=== PATIENT | female | born 1995 | race Caucasian/White ===

== ENCOUNTER 2017-05-20 22:22 | Outpatient (CLI) | payer MEDICAID, OTHER ==
[~2017-05-20] VITALS: Ht 152.4 cm; Wt 83.7 kg
[2017-05-20 22:39] VITALS: Ht 152.4 cm; Wt 83.7 kg
[2017-05-20] MEDS ORDERED: PRENAT PO (22:40)
[2017-05-20 22:50] VITALS: BP 120/59; PULSE 98; RESP 18
[2017-05-20 23:37] LABS: BASOPHIL # 0.1 10^3/ul (0.0-0.1); BASOPHILS % 0.4 % (0.0-2.0); EOSINOPHILS # 0.4 10^3/ul (0.0-0.5); EOSINOPHILS % 2.6 % (0.0-7.0); HEMATOCRIT 31.4 % (37.0-47.0); HEMOGLOBIN 10.7 g/dl (12.0-16.0); LYMPHOCYTES # 2.5 10^3/ul (0.8-2.9); LYMPHOCYTES % 17.9 % (18.0-55.0); MEAN CORPUSCULAR HEMOGLOBIN 30.7 pg (29.0-33.0); MEAN CORPUSCULAR HGB CONC 34.1 g/dl (32.0-37.0); MEAN PLATELET VOLUME 9.8 fl (7.4-10.4); MONOCYTE # 1.3 10^3/ul (0.3-0.9); MONOCYTES % 9.2 % (0.0-13.0); NEUTROPHILS % 67.4 % (30.0-74.0); PLATELET COUNT 242 10^3/UL (140-415); RED BLOOD COUNT 3.49 10^6/ul (4.20-5.40); RED CELL DISTRIBUTION WIDTH 12.5 % (11.5-14.5); WHITE BLOOD COUNT 13.9 10^3/ul (4.8-10.8)
[2017-05-20 23:49] LABS: ADD UMIC NO; UR ASCORBIC ACID NEGATIVE (NEGATIVE); UR BILIRUBIN (Dip) NEGATIVE (NEGATIVE); UR BLOOD (Dip) NEGATIVE (NEGATIVE); UR CLARITY CLEAR (CLEAR); UR COLOR YELLOW (YELLOW); UR GLUCOSE (Dip) NEGATIVE (NEGATIVE); UR KETONES (Dip) NEGATIVE (NEGATIVE); UR LEUKOCYTE ESTERASE (Dip) NEGATIVE Leu/ul (NEGATIVE); UR NITRITE (Dip) NEGATIVE (NEGATIVE); UR SPECIFIC GRAVITY (Dip) 1.015 (1.003-1.030); UR TOTAL PROTEIN (Dip) NEGATIVE (NEGATIVE); UR UROBILINOGEN (Dip) NEGATIVE (NEGATIVE)
--- NOTE | 2017-05-20 23:56 | RADRPT ---
PROCEDURE: OB ultrasound for biophysical profile CLINICAL INDICATION: well-being. TECHNIQUE: Multiple sonographic images of the gravid uterus performed. The images were reviewed on a PACS workstation. COMPARISON: None FINDINGS: A single live intrauterine is identified with heart rate of 139 bpm. Fet us is in a cephalic presentation. Placenta is located posteriorly. Biophysical profile: breathing movement = 2/2 tone = 2/2 motion = 2/2 MALLIKA = 2/2 Amniotic fluid MVP = 5.8 cm. IMPRESSION: 1. Single live intrauterine gestation. 2. Biophysical profile = 8/8. 3. Amniotic fluid MVP = 5.8 cm. RPTAT: HMVK .Anam Kern MD, Date Time Electronically viewed and signed by .Anam Kern MD, MD on 05/20/2017 23:55 .K/
--- NOTE | 2017-05-20 23:58 | RADRPT ---
PROCEDURE: US OB. CLINICAL INDICATION: well-being. TECHNIQUE: Multiple sonographic images of the pelvis were obtained. Transabdominal imaging only w as performed. The images were reviewed on a PACS workstation. COMPARISON: None. FINDINGS: Single live intrauterine is identified. Cardiac activity is present with 148 beats per mi nute. There is a vertex presentation. Measurements: BPD = 23 weeks 0 days. HC = 22 weeks 0 days. AC = 23 weeks 5 days. FL = 23 weeks 0 days. Estimated gestational age of approximately 23 weeks 0 days. The estimated date of delivery is 09/16/2017. The EFW = 575 g which is at the greater than 97th percentile.. The placenta is posterior. IMPRESSION: Single live intrauterine gestation of approximately 23 weeks 0 days. RPTAT: HMVK .Anam Kern MD, MD Date Time Electronically viewed and signed by .Anam Kern MD, MD on 05/20/2017 23:57 .K/
[2017-05-21] MEDS ORDERED: ACETAMINOPHEN 325 MG TAB PO ONE
--- NOTE | 2017-05-21 00:49 | RADRPT ---
PROCEDURE: Limited OB ultrasound CLINICAL INDICATION: Pain TECHNIQUE: Limited sonographic evaluation of the gravid uterus was performed to assess the cervica l length COMPARISON: 05/20/2017. FINDINGS: Single intrauterine demonstrates the cervix with a length of 4.51 cm. IMPRESSION: Single intrauterine with a cervical length of 4.51 cm. RPTAT: HMVK .Anam Kern MD, Date Time Electronically viewed and signed by .Anam Kern MD, on 05/21/2017 00:49 .K/
[2017-05-21 02:58] LABS: BARBITURATES Negative (NEGATIVE); BENZODIAZEPINES Negative (NEGATIVE); CANNABINOIDS Negative (NEGATIVE); COCAINE Negative (NEGATIVE); OPIATES Negative (NEGATIVE)
--- NOTE | 2017-05-21 03:23 | TRIAGE ---
OB Triage Datetime Report Generated by CPN: 05/21/2017 03:23 Datetime: 05/21/2017 01:10 Stage of : OB Triage Labor Evaluation Frequency: OCCASS Monitor Mode: External Duration (sec)2399: 50 Quality: Mild Pattern: Normal: <= 5 Contractions in 10 Minutes Resting Tone [place]: Relaxed Pain Assessment Pain Scale: 3 Pain Presence: Constant Pain Type: Ache Pain Location: Back Pain Goal: 3 Pain Relief Measures: Pain Medication Given (Annotations: TYLENOL WAS GIVEN EARLIER) Datetime: 05/21/2017 00:15 Stage of : OB Triage Labor Evaluation Frequency: OCCASS Monitor Mode: External Duration (sec)2399: 50 Quality: Mild Pattern: Normal: <= 5 Contractions in 10 Minutes Resting Tone [place]: Relaxed Pain Assessment Pain Scale: 5 Pain Presence: Constant Pain Type: Ache Pain Location: Back Pain Goal: 3 Pain Relief Measures: Comfort Measures Datetime: 05/20/2017 23:15 Stage of : OB Triage Temperature Route: Oral Labor Evaluation Frequency: OCCASS Monitor Mode: External Duration (sec)2399: 50 Quality: Mild Pattern: Normal: <= 5 Contractions in 10 Minutes Resting Tone [place]: Relaxed Heart Rate FHR Baseline Rate: 140 (Annotations: CANNOT MONITOR CONTINOUSLY DUE TO GA) Monitor Mode: External US Variability: Minimal - Undetectable to <=5 bpm Accelerations: 10X10 Decelerations: None Category: Category I Pain Assessment Pain Scale: 5 Pain Presence: Constant Pain Type: Ache Pain Location: Back Pain Goal: 3 Pain Relief Measures: Comfort Measures Datetime: 05/20/2017 22:49 Assessment Type: Triage Maternal Assessment Level of Consciousness: Fully Conscious DTR's/Clonus: DTRs 2+; No Clonus Headache: Denies Blurred Vision: No Respiratory Effort: Unlabored; Regular Rhythm; Equal Expansion Breath Sounds, Left: Clear and Equal Breath Sounds, Right: Clear and Equal Nausea/Vomiting: Denies RUQ Epigastric Pain: Denies Lower Extremities Edema: Bilateral Lower Extremities Degree: 2+ Upper Extremities Edema: None Facial Edema: None Fall Risk Assessment History of Falling: (0) No Secondary Diagnosis: (0) No Ambulatory Aid: (0) Bedrest/Nurse Assist IV Therapy: (0) No Gait: (0) Normal/Bedrest/Immobile Mental Status: (0) Oriented to Own Ability Fall Score: 0 Fall Risk Score Definition: No Risk: No action required Datetime: 05/20/2017 22:48 Time of Arrival: 05/20/2017 22:25 EGA: 21.4 Arrived By: Stretcher; Ambulance Arrived From: Home Chief Complaint: FLANK PAIN RADIATES TO ABD Movement: Present Contractions: Denies/Absent Rupture of Membranes: Denies Vaginal Bleeding: None Vaginal Discharge: Denies Abdominal Trauma: Not Applicable Patient Complaints: Back Pain Time Provider Notified: 05/20/2017 22:35 Provider Notified: BULMARO Initial Plan: UA, CBC, U/S FOR EFW AND BPP
--- NOTE | 2017-05-21 04:06 | PN ---
Triage Information Date/Time 05/21/17 Reason for visit: Abd/pelvic pain Weeks of Gestation 21W4D /Para PRIMIGRAVIDA Diabetes: none Hypertention: none Additional information FLANK PAIN Objective Vital Signs Date Time Temp Pulse Resp B/P Pulse Ox O2 Delivery O2 Flow Rate FiO2 05/20/17 22:50 98.9 98 18 120/59 Room Air Heart Rate: 150's Contractions: None Exam CVA neg for tenderness Results/Medications Result Diagram: 05/20/17 2316 Results 24 hrs Laboratory Tests Test 05/20/17 22:35 05/20/17 23:16 Urine Color YELLOW Urine Clarity CLEAR Urine pH 6.0 Urine Specific [place] 1.015 Urine Ketones NEGATIVE Urine Nitrite NEGATIVE Urine Bilirubin NEGATIVE Urine Urobilinogen NEGATIVE Urine Leukocyte Esterase NEGATIVE Urine Hemoglobin NEGATIVE Urine Glucose NEGATIVE Urine Total Protein NEGATIVE Urine Opiates Screen Negative Urine Barbiturates Negative Urine Amphetamines Screen Negative Urine Benzodiazepines Screen Negative Urine Cocaine Screen Negative Urine Cannabinoids Negative White Blood Count 13.9 H Red Blood Count 3.49 L Hemoglobin 10.7 L Hematocrit 31.4 L Mean Corpuscular Volume 90.0 Mean Corpuscular Hemoglobin 30.7 Mean Corpuscular Hemoglobin Concent 34.1 Red Cell Distribution Width 12.5 Platelet Count 242 Mean Platelet Volume 9.8 Neutrophils % 67.4 Lymphocytes % 17.9 L Monocytes % 9.2 Eosinophils % 2.6 Basophils % 0.4 Nucleated Red Blood Cells % 0.0 Neutrophils # (Manual) 9 H Lymphocytes # 2.5 Monocytes # 1.3 H Eosinophils # 0.4 Basophils # 0.1 Nucleated Red Blood Cells # 0.0 Medications tylenol 650mg Imaging Results BPP 05/06 MALLIKA 5.8 MVP 5.8 EFW 575 gms CVL 4.51 Disposition: Discharge Assessment/Plan IUP 21w4d pelvic pain and flank pain not in labor CHRISTINE CHAMBERLAIN MD May 21, 2017 04:05
== END 2017-05-21 02:17 | disposition home or self-care (01) ==
LOC: OBT 22:22 → L-D 22:23 → OBT 05-21 02:17
PROVIDERS: ATTEND Obstetrics & Gynecology
DX: O26.892 Other specified pregnancy related conditions, second trimester (principal); Z3A.21 21 weeks gestation of pregnancy; R10.2 Pelvic and perineal pain
CPT/HCPCS: 76815; 76817; 76818; 80307; 81003; 85025; 87086; Z7500; Z7610; G0463

== ENCOUNTER 2017-05-27 18:11 | Outpatient (CLI) | payer OTHER ==
[~2017-05-27] VITALS: Ht 152.4 cm; Wt 84.6 kg
[~2017-05-27 18:11] MED LIST: PRENAT PO
[2017-05-27 18:22] VITALS: Ht 152.4 cm; Wt 84.6 kg
[2017-05-27 18:23] VITALS: BP 122/61; PULSE 101; RESP 18
[2017-05-27 18:45] LABS: BASOPHILS % 0.3 % (0.0-2.0); EOSINOPHILS # 0.2 10^3/ul (0.0-0.5); EOSINOPHILS % 1.6 % (0.0-7.0); HEMATOCRIT 32.1 % (37.0-47.0); HEMOGLOBIN 10.8 g/dl (12.0-16.0); LYMPHOCYTES # 1.9 10^3/ul (0.8-2.9); LYMPHOCYTES % 13.6 % (18.0-55.0); MEAN CORPUSCULAR HEMOGLOBIN 30.3 pg (29.0-33.0); MEAN CORPUSCULAR HGB CONC 33.6 g/dl (32.0-37.0); MEAN CORPUSCULAR VOLUME 89.9 fl (72.0-104.0); MEAN PLATELET VOLUME 9.5 fl (7.4-10.4); MONOCYTES % 7.3 % (0.0-13.0); NEUTROPHILS % 75.4 % (30.0-74.0); PLATELET COUNT 257 10^3/UL (140-415); RED BLOOD COUNT 3.57 10^6/ul (4.20-5.40); RED CELL DISTRIBUTION WIDTH 12.1 % (11.5-14.5); WHITE BLOOD COUNT 14.2 10^3/ul (4.8-10.8)
--- NOTE | 2017-05-27 19:06 | RADRPT ---
PROCEDURE: US OB. CLINICAL INDICATION: Trauma due to a fall. Decreased motion. TECHNIQUE: Multiple sonographic images of the uterus were obtained. The images were revi ewed on a PACS workstation. COMPARISON: No prior studies are available for comparison. FINDINGS: There is a single live intrauterine gestation. heart rate is 141 beats per minute. Measurements were made in order to determine age. The results are as follows: BPD = 6.05 cm. HC = 21.34 cm. AC = 19.81 cm. FL = 4.33 cm. Estimated weight is 679 +/- 102 grams. LMP growth percentile is greater than 97 %. Menstrual age by ultrasound dates is 24 weeks 1 day. The estimated date of delivery is 09/15/2017. Cervical length is 6.7 cm. Position is cephalic and placenta is posterior grade 1. There is no evidence for an abruption or annette centa previa. IMPRESSION: 1. Single live intrauterine gestation of 24 weeks 1 day menstrual age by ultrasound dates. 2. The estimated date of delivery is 09/15/2017. RPTAT: QQ .Gunnar Pond MD, Date Time Electronically viewed and signed by .Gunnar Pond MD, on 05/27/2017 19:06 .R/
--- NOTE | 2017-05-27 22:47 | PN ---
Triage Information Date/Time Reason for visit: s/p fall Weeks of Gestation 22 weeks /Para Diabetes: none Hypertention: none Objective Vital Signs Date Time Temp Pulse Resp B/P Pulse Ox O2 Delivery O2 Flow Rate FiO2 05/27/17 18:23 99.6 101 18 122/61 Room Air Heart Rate: 140's Heart Rate Comments Appropriate for GA Contractions: None Results/Medications Result Diagram: 05/27/17 1830 Results 24 hrs Laboratory Tests Test 05/27/17 18:30 White Blood Count 14.2 H Red Blood Count 3.57 L Hemoglobin 10.8 L Hematocrit 32.1 L Mean Corpuscular Volume 89.9 Mean Corpuscular Hemoglobin 30.3 Mean Corpuscular Hemoglobin Concent 33.6 Red Cell Distribution Width 12.1 Platelet Count 257 Mean Platelet Volume 9.5 Neutrophils % 75.4 H Lymphocytes % 13.6 L Monocytes % 7.3 Eosinophils % 1.6 Basophils % 0.3 Nucleated Red Blood Cells % 0.0 Neutrophils # (Manual) 10.7 H Lymphocytes # 1.9 Monocytes # 1.0 H Eosinophils # 0.2 Basophils # 0.0 Nucleated Red Blood Cells # 0.0 Kleihauer-Betke Stain 0.0000 Imaging Results No sign of abruption Disposition: Discharge Assessment/Plan S/P fall Monitoring is reassuring D/c home. GRIS LICEA MD May 27, 2017 22:47
--- NOTE | 2017-05-27 23:04 | TRIAGE ---
OB Triage Datetime Report Generated by CPN: 05/27/2017 23:04 Datetime: 05/27/2017 23:01 Stage of : OB Triage Datetime: 05/27/2017 22:48 Comments: external monitors removed Datetime: 05/27/2017 22:22 Comments: maternal movement with movement, difficult to monitor Datetime: 05/27/2017 22:00 Labor Evaluation Frequency: 0 Monitor Mode: External Pattern: Normal: <= 5 Contractions in 10 Minutes Heart Rate FHR Baseline Rate: 145 Monitor Mode: External US Datetime: 05/27/2017 21:00 Labor Evaluation Frequency: 0 Monitor Mode: External Pattern: Normal: <= 5 Contractions in 10 Minutes Heart Rate FHR Baseline Rate: 145 Monitor Mode: External US FHR Baseline Changes: No Baseline Change Variability: Moderate 6-25 bpm Datetime: 05/27/2017 20:44 Comments: pt. sitting up to look at calendar Datetime: 05/27/2017 20:15 Comments: DR. DELSHAD CONFIRMED AUDIBLE FHT HEARD Datetime: 05/27/2017 20:00 Labor Evaluation Frequency: none Duration (sec)2399: none Datetime: 05/27/2017 19:18 Stage of : OB Triage Maternal Assessment Level of Consciousness: Fully Conscious Headache: Denies Blurred Vision: No Respiratory Effort: Unlabored; Regular Rhythm; Equal Expansion Nausea/Vomiting: Denies RUQ Epigastric Pain: Denies Lower Extremities Edema: Bilateral Lower Extremities Degree: 2+ Facial Edema: None Temperature Route: Axillary Fall Risk Assessment History of Falling: (0) No Secondary Diagnosis: (0) No Ambulatory Aid: (0) Bedrest/Nurse Assist IV Therapy: (0) No Gait: (0) Normal/Bedrest/Immobile Mental Status: (0) Oriented to Own Ability Fall Score: 0 Fall Risk Score Definition: No Risk: No action required Datetime: 05/27/2017 19:12 Monitor Mode: External US Comments: HEART TONES AUDIBLE WITH EXTERNAL MONITOR. 145 FHR, Datetime: 05/27/2017 19:09 Temperature Route: Oral Datetime: 05/27/2017 19:00 Monitor Mode: External Resting Tone [place]: Relaxed Pain Assessment Pain Scale: 3 Pain Presence: Intermittent Pain Type: Ache Pain Location: Abdomen Pain Goal: 0 Pain Relief Measures: Comfort Measures Datetime: 05/27/2017 18:20 Assessment Type: Triage Maternal Assessment Level of Consciousness: Fully Conscious DTR's/Clonus: DTRs 2+; No Clonus Headache: Denies Blurred Vision: No Respiratory Effort: Unlabored; Regular Rhythm; Equal Expansion Breath Sounds, Left: Clear and Equal Breath Sounds, Right: Clear and Equal Nausea/Vomiting: Denies RUQ Epigastric Pain: Denies Lower Extremities Edema: Bilateral Lower Extremities Degree: 1+ Upper Extremities Edema: Bilateral Upper Extremities Degree: 2+ Facial Edema: None Fall Risk Assessment History of Falling: (0) No Secondary Diagnosis: (0) No Ambulatory Aid: (0) Bedrest/Nurse Assist IV Therapy: (0) No Gait: (0) Normal/Bedrest/Immobile Mental Status: (0) Oriented to Own Ability Fall Score: 0 Fall Risk Score Definition: No Risk: No action required Datetime: 05/27/2017 18:19 Time of Arrival: 05/27/2017 17:58 EGA: 22.4 Arrived By: Stretcher Arrived From: Emergency Dept Chief Complaint: Fall Movement: Present Contractions: Denies/Absent Rupture of Membranes: Denies Vaginal Bleeding: Normal Show Vaginal Discharge: Denies Recent Sexual Intercouse: Denies Abdominal Trauma: Fall Patient Complaints: None Time Provider Notified: 05/27/2017 18:25 Provider Notified: Bety Initial Plan: Doppler, OB US for: EFW _ Cervical Length, Labs: CBC, KB, Type _ Screen Datetime: 05/27/2017 18:15 Heart Rate FHR Baseline Rate: 155 Monitor Mode: Doppler Datetime: 05/20/2017 22:49 Fall Score: 0 Fall Risk Score Definition: No Risk: No action required Datetime: 05/20/2017 22:48 EGA: 21.4
--- NOTE | 2017-05-27 23:05 | TRIAGE ---
OB Triage Datetime Report Generated by CPN: 05/27/2017 23:05 Datetime: 05/27/2017 18:19 Vaginal Bleeding: None
== END 2017-05-27 23:00 | disposition home or self-care (01) ==
LOC: OBT 18:11 → L-D 18:11 → OBT 23:00
PROVIDERS: ATTEND Obstetrics & Gynecology
DX: O26.892 Other specified pregnancy related conditions, second trimester (principal); Z3A.22 22 weeks gestation of pregnancy; R10.9 Unspecified abdominal pain; Z91.81 History of falling
CPT/HCPCS: 36415; 76815; 76817; 85025; 85460; 86850; 86900; 86901; G0463

== ENCOUNTER 2017-05-29 15:55 | Inpatient (IN) | payer MEDICAID, OTHER ==
[~2017-05-29] VITALS: Ht 152.4 cm; Wt 82.9 kg
--- NOTE | 2017-05-29 18:13 | RADRPT ---
PROCEDURE: Limited obstetric ultrasound CLINICAL INDICATION: labor TECHNIQUE: Multiple transverse and longitudinal grayscale images of the pelvis were obtained gary sabdominally and endovaginally.. COMPARISON: Obstetrical ultrasound from 05/27/2017 FINDINGS: There is a single live intrauterine gestation in a vertex position with a heart rate of 137 bp m. The placenta is fundal and posterior. There is no evidence of an abruption or placenta previa. The cervix is closed and measures 4.3 cm in length. There is trace fluid within the cervix. RPTAT: AA IMPRESSION: The cervix is closed and measures 4.3 cm in length. Trace fluid is noted in the cervix. Cephalic presentation. Physician Lazaro Date Time Electronically viewed and signed by Brandan Lauren Physician on 05/29/2017 18:13 /
[2017-05-29 18:35] LABS: BASOPHILS % 0.2 % (0.0-2.0); EOSINOPHILS # 0.2 10^3/ul (0.0-0.5); EOSINOPHILS % 1.8 % (0.0-7.0); HEMATOCRIT 31.6 % (37.0-47.0); HEMOGLOBIN 10.9 g/dl (12.0-16.0); LYMPHOCYTES # 2.2 10^3/ul (0.8-2.9); LYMPHOCYTES % 17.5 % (18.0-55.0); MEAN CORPUSCULAR HEMOGLOBIN 31.4 pg (29.0-33.0); MEAN CORPUSCULAR HGB CONC 34.5 g/dl (32.0-37.0); MEAN CORPUSCULAR VOLUME 91.1 fl (72.0-104.0); MEAN PLATELET VOLUME 9.8 fl (7.4-10.4); MONOCYTE # 1.1 10^3/ul (0.3-0.9); MONOCYTES % 8.9 % (0.0-13.0); NEUTROPHILS % 69.5 % (30.0-74.0); PLATELET COUNT 272 10^3/UL (140-415); RED BLOOD COUNT 3.47 10^6/ul (4.20-5.40); RED CELL DISTRIBUTION WIDTH 12.1 % (11.5-14.5); WHITE BLOOD COUNT 12.6 10^3/ul (4.8-10.8)
[2017-05-29 18:46] LABS: ADD UMIC NO; UR ASCORBIC ACID NEGATIVE (NEGATIVE); UR BACTERIA FEW /HPF (NONE SEEN); UR BILIRUBIN (Dip) NEGATIVE (NEGATIVE); UR BLOOD (Dip) NEGATIVE (NEGATIVE); UR CLARITY SLIGHTLY CLOUDY (CLEAR); UR COLOR YELLOW (YELLOW); UR GLUCOSE (Dip) 3+ mg/dL (NEGATIVE); UR KETONES (Dip) TRACE mg/dL (NEGATIVE); UR LEUKOCYTE ESTERASE (Dip) NEGATIVE Leu/ul (NEGATIVE); UR NITRITE (Dip) NEGATIVE (NEGATIVE); UR RBC 2 /HPF (0-5); UR SPECIFIC GRAVITY (Dip) 1.015 (1.003-1.030); UR SQUAMOUS EPITHELIAL CELL FEW /HPF (FEW); UR TOTAL PROTEIN (Dip) NEGATIVE (NEGATIVE); UR UROBILINOGEN (Dip) NEGATIVE (NEGATIVE)
[2017-05-29] MEDS ORDERED: BETAMET NA PHOS/AC(6 MG/ML) 5ML INJ IM ONE (20:30)
[2017-05-29] MEDS ORDERED: LACTATED RINGER'S 500 ML IV ONE (20:30)
--- NOTE | 2017-05-29 20:51 | HP ---
Date/Time of Note Date/Time of Note DATE: 05/29/17 TIME: 20:37 OB - History Hx of Present Free Text/Dictation 21 y.o A1(sab) here for lower abdominal cramping pain q2-4 min apart patient was here 2days ago with same problem and another one was on 05/20/17 By date she suppose to be 22w6d , by u/s on 05/27/17 KELLEY will be makes her at 24w3d by today EFM mild uterine activities noted CVL 6.8 to 4.3 U/A neg but glucose +++ admitted for IV hydration and BMZ and accuck Estimated Due Date: Sep 15, 2017 : 2 Para: 0 Spontaneous : 1 Therapeutic : 0 Care: None Ultrasounds: Normal mid trimester US Obstetrical Complications: None Medical Complications: None Past Family/Social History * Past Medical, Surgical, Family and Obstetric Histories reviewed from chart. Blood Type: Unknown Rubella: unknown RPR/VDRL: Unknown GBS Status: Unknown HBsAG: Unknown OB Admission Exam Vital Signs Vital Signs vss afebrile Physical Exam HEENT: WNL Heart: Rhythm Normal Lungs: Clear, Equal Abdomen: WNL Extremities: Normal Reflexes: Normal Cervical Dilatation: None Effacement: 0% Membranes: Intact Amniotic Fluid: Unevaluable Heart Rate: 150's Accelerations: Accelerations Present Decelerations: No Decelerations Varibility: Moderate Contractions on Admission: < 5 Minutes Apart Intensity: Mild Last 72 hours Lab Results CBC & BMP 05/29/17 17:50 OB Assessment/Plan Reason for admission: other (pelvic pain) Other Assessment: IUP 24w3d R/o PTL Other plan: IV hydration BMZ Accucheck FBS 2hr PP CHRISTINE CHAMBERLAIN MD May 29, 2017 20:47
[2017-05-29] MEDS: LACTATED RINGER'S 1,000 ML IV SCH (22:02)
[2017-05-29 23:02] LABS: ALANINE AMINOTRANSFERASE 29 IU/L (13-69); ALBUMIN 3.3 g/dl (3.3-4.9); ALBUMIN/GLOBULIN RATIO 1.06; ALKALINE PHOSPHATASE 101 IU/L (42-121); ANION GAP 14 (8-16); ASPARTATE AMINO TRANSFERASE 19 IU/L (15-46); BLOOD UREA NITROGEN 5 mg/dl (7-20); CALCIUM 9.2 mg/dl (8.4-10.2); CARBON DIOXIDE 27 mmol/L (21-31); CHLORIDE 100 mmol/L (97-110); CREATININE 0.49 mg/dl (0.44-1.00); GLUCOSE 84 mg/dl (70-220); POTASSIUM 3.8 mmol/L (3.5-5.1); SODIUM 137 mmol/L (135-144); TOTAL PROTEIN 6.4 g/dl (6.1-8.1)
[2017-05-30] MEDS: LACTATED RINGER'S 1,000 ML IV SCH ×2 (09:08→17:56)
[2017-05-30] MEDS: PRENATAL VITAMIN PO SCH (09:08)
[2017-05-30 09:59] LABS: BARBITURATES Negative (NEGATIVE); BENZODIAZEPINES Negative (NEGATIVE); CANNABINOIDS Negative (NEGATIVE); COCAINE Negative (NEGATIVE); OPIATES Negative (NEGATIVE)
[2017-05-30] MEDS ORDERED: INDOMETHACIN 50 MG PO ONE (12:00)
[2017-05-30] MEDS ORDERED: INDOMETHACIN 25 MG PO SCH (13:00)
[2017-05-30 16:31] LABS: ADD UMIC NO; UR ASCORBIC ACID 40 mg/dL (NEGATIVE); UR BILIRUBIN (Dip) NEGATIVE (NEGATIVE); UR BLOOD (Dip) NEGATIVE (NEGATIVE); UR CLARITY SLIGHTLY CLOUDY (CLEAR); UR COLOR YELLOW (YELLOW); UR GLUCOSE (Dip) 3+ mg/dL (NEGATIVE); UR KETONES (Dip) TRACE mg/dL (NEGATIVE); UR LEUKOCYTE ESTERASE (Dip) NEGATIVE Leu/ul (NEGATIVE); UR NITRITE (Dip) NEGATIVE (NEGATIVE); UR RBC 1 /HPF (0-5); UR SPECIFIC GRAVITY (Dip) 1.026 (1.003-1.030); UR SQUAMOUS EPITHELIAL CELL FEW /HPF (FEW); UR TOTAL PROTEIN (Dip) NEGATIVE (NEGATIVE); UR UROBILINOGEN (Dip) NEGATIVE (NEGATIVE)
[2017-05-30] MEDS: INDOMETHACIN 25 MG PO SCH (17:56)
[2017-05-30] MEDS ORDERED: BETAMET NA PHOS/AC(6 MG/ML) 5ML INJ IM ONE (21:30)
[2017-05-31] MEDS: LACTATED RINGER'S 1,000 ML IV SCH ×3 (00:38→16:54)
--- NOTE | 2017-05-31 00:52 | CONS ---
DATE OF ADMISSION: 05/29/2017 DATE OF CONSULTATION: 05/30/2017 HISTORY OF PRESENT ILLNESS: The patient is a 21-year-old, 2, with previous spontaneous . Currently, she is 23 weeks. She presented yesterday with abdominal pain. She was subsequently admitted and given betamethasone. Urinalysis upon admission showed 3+ glucose in the urine. Currently, she is experiencing infrequent contractions. Transvaginal cervical length shows the cervix to be 4.3 cm. PAST MEDICAL HISTORY: Not significant. OBSTETRICAL HISTORY: As mentioned above. REVIEW OF SYSTEMS: Negative except for as mentioned above. PHYSICAL EXAMINATION: VITAL SIGNS: Stable. Physical exam deferred. PELVIC: Contractions: One every 10-15 minutes, otherwise with irritability. heart tone appropriate for gestational age. Estimated weight 679 g. IMPRESSION: Intrauterine at 23 weeks with contractions, on betamethasone. Currently the joe infrequently. Urinalysis showed 3+ glucose, otherwise normal. Her father was a diabetic beginning. 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 RECOMMENDATION: 1. Indocin 50 mg load, 25 mg every 6 hours for 48-96 hours. 2. Betamethasone per protocol. 3. Patient does need to have a primary physician, preferably prior to discharge. If patient is stable without any contractions and without cervical change, she can be discharged home on Friday or Friday with an appropriate followup. Please repeat urinalysis to assure 4. truthfulness of the glucose in the urine. Please check hemoglobin A1c in case of diabetes beginning. I spoke to Dr. Bernardo, who is the laborist for today, about the patient. Dictated By: Simona Kaiser MD /hammad/guillermo /Document#: [id number]
[2017-05-31] MEDS: INDOMETHACIN 25 MG PO SCH ×5 (05:59→23:54)
[2017-05-31] MEDS: PRENATAL VITAMIN PO SCH (09:12)
[2017-05-31 10:51] LABS: RUBELLA ANTIBODY - IGG 2.09 index
[2017-05-31] MEDS: ACETAMINOPHEN 325 MG TAB PO PRN (20:11)
[2017-06-01] MEDS: LACTATED RINGER'S 1,000 ML IV SCH ×4 (00:31→19:00)
[2017-06-01] MEDS: INDOMETHACIN 25 MG PO SCH (06:00)
[2017-06-01] MEDS: PRENATAL VITAMIN PO SCH (08:45)
--- NOTE | 2017-06-01 09:45 | RADRPT ---
PROCEDURE: US OB biophysical profile. CLINICAL INDICATION: evaluation TECHNIQUE: Multiple sonographic images of the pelvis were obtained. The images were reviewed on a PACS workstation. COMPARISON: Obstetrical ultrasound from 05/29/2017 FINDINGS: The cervix is closed and measures 4.6 cm in length. Trace endocervical fluid is noted. There is a single viable intrauterine gestation. Cardiac activity is present with 157 beats per min shira. There is a breech presentation. The placenta is posterior and fundal in location. There is no evidence of placental abruption. There is a normal amount of amniotic fluid with an MALLIKA = 16.4 cm. Biophysical profile: movement 2/2 tone 2/2. breathing 2/2 MALLIKA 2/2 Total 05/06 RPTAT: AA . IMPRESSION: Normal biophysical profile. Breech presentation. The cervix is closed and measures 4.6 cm in length. Trace endocervical fluid is noted. Physician Lazaro Date Time Electronically viewed and signed by Physician Lazaro on 06/01/2017 09:45 /
--- NOTE | 2017-06-01 09:54 | QN ---
Documentation Comment Laborist S: Pt reports contractions have decreased, still feeling them very occasionally. Reports FM which is less than normal. Denies LOF or VB. Has not yet found an OB. O: VS 98.1 117/70 82 18 Gen: well appearing, NAD CV: RRR, nl s1s2 Resp: CTAB Abd: soft, obese, nontender Ext: symmetric, nontender, no edema FHT: baseline 140s, mod issac, +accels, no decels [place]: 1UC noted TVCL (05/27) 6.7cm, (05/29) 4.3cm UCx (05/29) mixed gram pos Vaginal Cx (05/30) wnl A/P: 21yo at 23+2 by dates, 24+6 by U/S on 05/27 admitted 10/31 concern for PTL s/p BMZ (05/29-05/30), Magnesium and now on Indocin with rare UCs 1)PTL ->Per Perinatology consult note, pt may be discharged Friday or Friday thus TVCL ordered and done with stable TVCL at 4.6cm. Spoke with Dr. Kaiser who recommended pt stay in-house until tomorrow and have TVCL done on day of discharge. Unfortunately, this had already been performed prior to this conversation. Pt encouraged to obtain OB and arrange f/up prior to discharge ->Given infrequent contractions, will d/c Indocin ->Continuous toco 2)FWB ->Reactive NST ->BPP ordered and pending ->Cont qshift TITOT FELICIANO FOX MD Jun 01, 2017 09:54
[2017-06-02] MEDS: LACTATED RINGER'S 1,000 ML IV SCH ×2 (00:51→08:36)
[2017-06-02] MEDS: ACETAMINOPHEN 325 MG TAB PO PRN (00:57)
[2017-06-02] MEDS: PRENATAL VITAMIN PO SCH (08:36)
--- NOTE | 2017-06-02 14:02 | PD.PPDC ---
VEGETABLE WASHER Discharge Instruction Condition Patient Condition: Stable Diet Diet: Resume Regular Diet Activity/Restrictions Restrictions: No Sexual Activity Nothing in the Vagina No [place] Follow-up Follow-up with Physician: 3, Day/Days DEMARIO CAMARILLO MD Jun 02, 2017 14:02
--- NOTE | 2017-06-03 05:45 | DS ---
DATE OF ADMISSION: 05/29/2017 DATE OF DISCHARGE: 06/02/2017 FINAL DIAGNOSES: 1. Intrauterine at 23 weeks plus. 2. uterine contractions, resolved. HISTORY AND HOSPITAL COURSE:: The patient is a 21-year-old, G2, P2 who presented at 23 weeks complaining of uterine contractions. The patient was admitted and started on betamethasone and magnesium. The patient on admission had cervical length greater than 4.0. The patient had been previously homeless with no care. The patient continued on betamethasone and magnesium. The patient was also started on Indocin. On the day of discharge, the patient is doing well. No fever or chills. Negative contractions. She has positive movement and positive heart tones. Repeat cervical length is greater than 4.0. On discharge, the patient's vital signs are normal. Heart has a regular rhythm. . Abdomen is soft, nontender, no rebound or guarding. Positive heart tones. The patient is stable on discharge. ER precautions were given. FOLLOWUP: At this point, the patient is discharged to home. The patient will be given follow-up instructions and will be advised who to follow up with. Dictated By: Galileo Ramirez MD /hammad/mayra /Document#: [id number]
== END 2017-06-02 14:40 | disposition home or self-care (01) | DRG 778 ==
LOC: OBT 15:55 → OBG 16:03 → OBT 20:45
DX: O60.02 Preterm labor without delivery, second trimester (principal); Z59.0 Homelessness; Z3A.23 23 weeks gestation of pregnancy
CPT/HCPCS: 76817; 76818; 80053; 80307; 81001; 81003; 83036; 85025; 86592; 86703; 86762; 86900; 86901; 87081; 87086; 87340; 87591; G0463; J0702; J7120

== ENCOUNTER 2017-07-12 21:08 | Outpatient (CLI) | payer MEDICAID ==
[~2017-07-12] VITALS: Ht 152.4 cm; Wt 86.8 kg
[2017-07-12 21:24] VITALS: BP 111/61; PULSE 96; RESP 18
[2017-07-12] MEDS ORDERED: FERR134T PO (21:26)
[2017-07-12 22:05] LABS: ADD UMIC YES; UR ASCORBIC ACID NEGATIVE (NEGATIVE); UR BACTERIA FEW /HPF (NONE SEEN); UR BILIRUBIN (Dip) NEGATIVE (NEGATIVE); UR BLOOD (Dip) NEGATIVE (NEGATIVE); UR CLARITY CLOUDY (CLEAR); UR COLOR YELLOW (YELLOW); UR GLUCOSE (Dip) NEGATIVE (NEGATIVE); UR KETONES (Dip) TRACE mg/dL (NEGATIVE); UR LEUKOCYTE ESTERASE (Dip) NEGATIVE Leu/ul (NEGATIVE); UR NITRITE (Dip) NEGATIVE (NEGATIVE); UR RBC 1 /HPF (0-5); UR SPECIFIC GRAVITY (Dip) 1.025 (1.003-1.030); UR SQUAMOUS EPITHELIAL CELL FEW /HPF (FEW); UR TOTAL PROTEIN (Dip) NEGATIVE (NEGATIVE); UR UROBILINOGEN (Dip) 2+ mg/dL (NEGATIVE)
--- NOTE | 2017-07-12 23:03 | RADRPT ---
PROCEDURE: Obstetrical ultrasound CLINICAL INDICATION: Pre-term labor. TECHNIQUE: Transabdominal and Transvaginal sonographic images of the uterus obtained afte r first trimester, greater than 14 weeks gestation. Single intrauterine gestation present. COMPARISON: 06/01/2017 FINDINGS: Presentation: Cephalic heart rate is 140 beats per minute. Partially visualized placenta: Posterior The cervix is closed with a length of 3.8 cm. Small amount of fluid within the endocervical canal. IMPRESSION: The cervix is closed with a length of 3.8 cm. Small amount of fluid within the endocervical canal. RPTAT: AADD .Tani See MD, MD Date Time Electronically viewed and signed by .Tani See MD, on 07/12/2017 23:02 .B/
[2017-07-12 23:07] LABS: BARBITURATES Negative (NEGATIVE)
[2017-07-12 23:08] LABS: BENZODIAZEPINES Negative (NEGATIVE); CANNABINOIDS Negative (NEGATIVE); COCAINE Negative (NEGATIVE); OPIATES Negative (NEGATIVE)
--- NOTE | 2017-07-12 23:58 | PN ---
Triage Information Date/Time Reason for visit: Uterine contractions Weeks of Gestation 30w 4d /Para Objective Vital Signs Date Time Temp Pulse Resp B/P Pulse Ox O2 Delivery O2 Flow Rate FiO2 07/12/17 21:24 98.6 96 18 111/61 Room Air Heart Rate Comments reactive Contractions: None Exam FFN negative Results/Medications Results 24 hrs Laboratory Tests Test 07/12/17 21:10 07/12/17 22:25 Urine Color YELLOW Urine Clarity CLOUDY A Urine pH 6.0 Urine Specific [place] 1.025 Urine Ketones TRACE A Urine Nitrite NEGATIVE Urine Bilirubin NEGATIVE Urine Urobilinogen 2+ H Urine Leukocyte Esterase NEGATIVE Urine Microscopic RBC 1 Urine Microscopic WBC 7 H Urine Squamous Epithelial Cells FEW Urine Bacteria FEW A Urine Hemoglobin NEGATIVE Urine Glucose NEGATIVE Urine Total Protein NEGATIVE Urine Opiates Screen Negative Urine Barbiturates Negative Urine Amphetamines Screen Negative Urine Benzodiazepines Screen Negative Urine Cocaine Screen Negative Urine Cannabinoids Negative Fibronectin NEGATIVE Imaging Results CL 3.8cm Disposition: Discharge MERRITT NASH Jul 12, 2017 23:58
--- NOTE | 2017-07-13 00:27 | TRIAGE ---
OB Triage Datetime Report Generated by CPN: 07/13/2017 00:26 Datetime: 07/12/2017 23:50 Stage of : OB Triage Datetime: 07/12/2017 23:45 Stage of : OB Triage Datetime: 07/12/2017 23:17 Stage of : OB Triage Monitor Mode: External Quality: Mild Pattern: Normal: <= 5 Contractions in 10 Minutes Resting Tone [place]: Relaxed Heart Rate FHR Baseline Rate: 140 Monitor Mode: External US FHR Baseline Changes: No Baseline Change Variability: Moderate 6-25 bpm Accelerations: 15X15 Decelerations: None Category: Category I Datetime: 07/12/2017 22:25 Stage of : OB Triage Datetime: 07/12/2017 22:15 Stage of : OB Triage Heart Rate FHR Baseline Rate: 135 Monitor Mode: External US FHR Baseline Changes: No Baseline Change Variability: Moderate 6-25 bpm Accelerations: 15X15 Decelerations: Variable Category: Category II Datetime: 07/12/2017 22:10 Stage of : OB Triage Datetime: 07/12/2017 21:57 Stage of : OB Triage Monitor Mode: External Duration (sec)2399: 10sec irrit Quality: Mild Pattern: Normal: <= 5 Contractions in 10 Minutes Resting Tone [place]: Relaxed Heart Rate FHR Baseline Rate: 140 Monitor Mode: External US FHR Baseline Changes: No Baseline Change Variability: Moderate 6-25 bpm Accelerations: 15X15 Decelerations: None Category: Category I Datetime: 07/12/2017 21:53 Arrived By: Stretcher; Ambulance Arrived From: Home Chief Complaint: brought by ambulance from transitional living housing c/o cramping since 120 0. Hx PTL Movement: Present Contractions: Irregular Time Contractions Began: 07/12/2017 12:00 Rupture of Membranes: Denies Vaginal Bleeding: None Vaginal Discharge: Denies Recent Sexual Intercouse: Denies Abdominal Trauma: Not Applicable Patient Complaints: Cramping Time Provider Notified: 07/12/2017 22:10 Provider Notified: Dr Lal Initial Plan: EFM,UA Datetime: 06/02/2017 14:26 Heart Rate FHR Baseline Rate: 150 Comments: ega 23.3 today . appropriate for ega Datetime: 06/02/2017 14:00 Stage of : Antepartum Maternal Assessment Level of Consciousness: Fully Conscious Headache: Denies Nausea/Vomiting: Denies RUQ Epigastric Pain: Denies Labor Evaluation Frequency: 0/hr Monitor Mode: External Pain Assessment Pain Scale: 0 Pain Presence: None/Denies Vaginal Bleeding: None Datetime: 06/02/2017 13:00 Stage of : Antepartum Maternal Assessment Level of Consciousness: Fully Conscious Headache: Denies Nausea/Vomiting: Denies RUQ Epigastric Pain: Denies Labor Evaluation Frequency: 0/hr Monitor Mode: External Pain Assessment Pain Scale: 0 Pain Presence: None/Denies Vaginal Bleeding: None Datetime: 06/02/2017 12:00 Stage of : Antepartum Maternal Assessment Level of Consciousness: Fully Conscious Headache: Denies Nausea/Vomiting: Denies RUQ Epigastric Pain: Denies Labor Evaluation Frequency: 0/hr Monitor Mode: External Pain Assessment Pain Scale: 0 Pain Presence: None/Denies Vaginal Bleeding: None Datetime: 06/02/2017 11:00 Stage of : Antepartum Maternal Assessment Level of Consciousness: Fully Conscious Headache: Denies Nausea/Vomiting: Denies RUQ Epigastric Pain: Denies Labor Evaluation Frequency: 0/hr Monitor Mode: External Pain Assessment Pain Scale: 0 Pain Presence: None/Denies Vaginal Bleeding: None Datetime: 06/02/2017 10:00 Stage of : Antepartum Maternal Assessment Level of Consciousness: Fully Conscious Headache: Denies Nausea/Vomiting: Denies RUQ Epigastric Pain: Denies Labor Evaluation Frequency: 0/hr Monitor Mode: External Pain Assessment Pain Scale: 0 Pain Presence: None/Denies Vaginal Bleeding: None Datetime: 06/02/2017 09:41 Maternal Assessment Level of Consciousness: Fully Conscious Headache: Denies Blurred Vision: No Respiratory Effort: Unlabored Nausea/Vomiting: Denies Pain Presence: None/Denies Datetime: 06/02/2017 09:00 Stage of : Antepartum Maternal Assessment Level of Consciousness: Fully Conscious Headache: Denies Nausea/Vomiting: Denies RUQ Epigastric Pain: Denies Labor Evaluation Frequency: 0/hr Monitor Mode: External Pain Assessment Pain Scale: 0 Pain Presence: None/Denies Vaginal Bleeding: None Datetime: 06/02/2017 08:00 Stage of : Antepartum Maternal Assessment Level of Consciousness: Fully Conscious Headache: Denies Nausea/Vomiting: Denies RUQ Epigastric Pain: Denies Labor Evaluation Frequency: 0/hr Monitor Mode: External Pain Assessment Pain Scale: 0 Pain Presence: None/Denies Vaginal Bleeding: None Datetime: 06/02/2017 07:18 Labor Evaluation Frequency: 0 Monitor Mode: Palpation Datetime: 06/02/2017 07:14 Assessment Type: Ongoing Assessment Maternal Assessment Level of Consciousness: Fully Conscious Maternal Assessment Level of Consciousness: Fully Conscious DTR's/Clonus: DTRs 2+; No Clonus Headache: Denies Headache: Denies Blurred Vision: No Blurred Vision: No Respiratory Effort: Unlabored; Regular Rhythm; Equal Expansion Respiratory Effort: Unlabored Breath Sounds, Left: Clear and Equal Breath Sounds, Left: Clear and Equal Breath Sounds, Right: Clear and Equal Breath Sounds, Right: Clear and Equal Nausea/Vomiting: Denies Nausea/Vomiting: Denies RUQ Epigastric Pain: Denies RUQ Epigastric Pain: Denies Lower Extremities Edema: None Degree: None Upper Extremities Edema: None Degree: None Facial Edema: None Fall Risk Assessment History of Falling: (0) No Secondary Diagnosis: (0) No Ambulatory Aid: (0) Bedrest/Nurse Assist IV Therapy: (20) Yes Gait: (0) Normal/Bedrest/Immobile Mental Status: (0) Oriented to Own Ability Fall Score: 20 Fall Risk Score Definition: No Risk: No action required Datetime: 06/02/2017 07:05 Stage of : Antepartum Datetime: 06/02/2017 07:00 Labor Evaluation Frequency: NONE Monitor Mode: External Resting Tone [place]: Relaxed Pain Presence: None/Denies Pain Type: N/A Datetime: 06/02/2017 06:00 Labor Evaluation Frequency: NONE Monitor Mode: External Resting Tone [place]: Relaxed Pain Presence: None/Denies Pain Type: N/A Pain Assessment Comments: PT SLEEPING WITH EVEN UNLABORED BREATHING Datetime: 06/02/2017 05:36 Stage of : Antepartum Temperature Route: Oral Contraction Comments: PT DENIES CRAMPING Comments: PT STATES + FM Pain Presence: None/Denies Pain Type: N/A Amniotic Fluid Amount: None Vaginal Bleeding: None Datetime: 06/02/2017 05:00 Labor Evaluation Frequency: NONE Monitor Mode: External Resting Tone [place]: Relaxed Pain Presence: None/Denies Pain Type: N/A Pain Assessment Comments: PT REMAINS ASLEEP BUT EASILY AROUSED Datetime: 06/02/2017 04:00 Labor Evaluation Frequency: NONE Monitor Mode: External Resting Tone [place]: Relaxed Pain Assessment Pain Scale: 0 Pain Presence: None/Denies Pain Type: N/A Pain Assessment Comments: PT SLEEPING WITH EVEN UNLABORED BREATHING Datetime: 06/02/2017 03:00 Labor Evaluation Frequency: NONE Monitor Mode: External Resting Tone [place]: Relaxed Pain Presence: None/Denies Pain Type: N/A Pain Assessment Comments: PT REMAINS ASLEEP WITH EVEN UNLABORED BREATHING Datetime: 06/02/2017 02:00 Labor Evaluation Frequency: NONE Monitor Mode: External Resting Tone [place]: Relaxed Pain Presence: None/Denies Pain Type: N/A Datetime: 06/02/2017 01:00 Labor Evaluation Frequency: NONE Monitor Mode: External Resting Tone [place]: Relaxed Pain Presence: None/Denies Pain Type: N/A Pain Assessment Comments: PT SLEEPING WITH EVEN UNLABORED BREATHING Datetime: 06/02/2017 00:56 Stage of : Antepartum Pain Assessment Pain Scale: 4 Pain Presence: Constant Pain Type: Ache Pain Location: Head Pain Goal: 2 Pain Relief Measures: Pain Medication Given Datetime: 06/02/2017 00:51 Stage of : Antepartum Datetime: 06/02/2017 00:00 Labor Evaluation Frequency: NONE Monitor Mode: External Resting Tone [place]: Relaxed Contraction Comments: PT STATES HER STOMACH GETS HARD SOMETIMES FOR A LONG TIME. NO UC'S NOTED ON THE MONITOR. Pain Assessment Pain Scale: 4 Pain Presence: Intermittent Pain Type: Cramping Pain Location: Abdomen Pain Goal: 2 Datetime: 06/01/2017 23:57 Stage of : Antepartum Temperature Route: Oral Datetime: 06/01/2017 23:04 Monitor Mode: External Datetime: 06/01/2017 23:00 Labor Evaluation Frequency: NONE Monitor Mode: External Resting Tone [place]: Relaxed Contraction Comments: SOME UTERINE IRRITABILITY NOTED Datetime: 06/01/2017 22:00 Labor Evaluation Frequency: X2 Monitor Mode: External Duration (sec)2399: 50-70 Quality: Mild Resting Tone [place]: Relaxed Pain Presence: None/Denies Pain Type: N/A Datetime: 06/01/2017 21:00 Monitor Mode: External Contraction Comments: PLUGGED BACK IN Datetime: 06/01/2017 20:53 Heart Rate FHR Baseline Rate: 150 Monitor Mode: External US Variability: Moderate 6-25 bpm Accelerations: 10X10 Decelerations: None Category: Category I Comments: AGA. U/S REMOVED FHR MONITORING COMPLETE Datetime: 06/01/2017 20:03 Monitor Mode: External US Comments: APPLIED FOR FHR MONITORING Datetime: 06/01/2017 20:00 Labor Evaluation Frequency: NONE Monitor Mode: External Resting Tone [place]: Relaxed Pain Presence: None/Denies Pain Type: N/A Datetime: 06/01/2017 19:26 Stage of : Antepartum Assessment Type: Ongoing Assessment Maternal Assessment Level of Consciousness: Fully Conscious DTR's/Clonus: DTRs 2+; No Clonus Headache: Denies Blurred Vision: No Respiratory Effort: Unlabored; Regular Rhythm; Equal Expansion Breath Sounds, Left: Clear and Equal Breath Sounds, Right: Clear and Equal Nausea/Vomiting: Denies RUQ Epigastric Pain: Denies Lower Extremities Edema: None Degree: None Upper Extremities Edema: None Degree: None Facial Edema: None Temperature Route: Oral Fall Risk Assessment History of Falling: (0) No Secondary Diagnosis: (0) No Ambulatory Aid: (0) Bedrest/Nurse Assist IV Therapy: (0) No Gait: (0) Normal/Bedrest/Immobile Mental Status: (0) Oriented to Own Ability Fall Score: 0 Fall Risk Score Definition: No Risk: No action required Contraction Comments: PT DENIES CRAMPING Comments: PT STATES + FM Pain Presence: None/Denies Pain Type: N/A Amniotic Fluid Amount: None Vaginal Bleeding: None Datetime: 06/01/2017 19:14 Stage of : Antepartum Datetime: 06/01/2017 19:00 Labor Evaluation Frequency: 0 Monitor Mode: External Resting Tone [place]: Relaxed Pain Assessment Pain Scale: 0 Pain Presence: None/Denies Pain Type: N/A Datetime: 06/01/2017 18:00 Labor Evaluation Frequency: 0 Monitor Mode: External Resting Tone [place]: Relaxed Datetime: 06/01/2017 17:00 Stage of : Antepartum Temperature Route: Oral Labor Evaluation Frequency: 0 Monitor Mode: External Resting Tone [place]: Relaxed Datetime: 06/01/2017 16:00 Stage of : Antepartum Labor Evaluation Frequency: 0 Monitor Mode: External Resting Tone [place]: Relaxed Pain Assessment Pain Scale: 0 Pain Presence: None/Denies Pain Type: N/A Datetime: 06/01/2017 15:00 Labor Evaluation Frequency: irritability Monitor Mode: External Duration (sec)2399: 15 Quality: Mild Resting Tone [place]: Relaxed Pain Assessment Pain Scale: 0 Pain Presence: None/Denies Pain Type: N/A Datetime: 06/01/2017 14:00 Labor Evaluation Frequency: 0 Monitor Mode: External Resting Tone [place]: Relaxed Pain Assessment Pain Scale: 0 Pain Presence: None/Denies Pain Type: N/A Datetime: 06/01/2017 13:00 Labor Evaluation Frequency: 0 Monitor Mode: External Resting Tone [place]: Relaxed Datetime: 06/01/2017 12:00 Labor Evaluation Frequency: 0 Monitor Mode: External Resting Tone [place]: Relaxed Datetime: 06/01/2017 11:53 Stage of : Antepartum Temperature Route: Oral Pain Assessment Pain Scale: 0 Pain Presence: None/Denies Pain Type: N/A Pain Goal: 0 Datetime: 06/01/2017 11:00 Labor Evaluation Frequency: 0 Monitor Mode: External Resting Tone [place]: Relaxed Pain Assessment Pain Scale: 0 Pain Presence: None/Denies Pain Type: N/A Datetime: 06/01/2017 10:00 Labor Evaluation Frequency: 0 Monitor Mode: External Resting Tone [place]: Relaxed Datetime: 06/01/2017 09:00 Monitor Mode: External US FHR Baseline Changes: No Baseline Change Variability: Moderate 6-25 bpm Accelerations: 10X10 Decelerations: None Datetime: 06/01/2017 08:43 Monitor Mode: External US FHR Baseline Changes: No Baseline Change Variability: Moderate 6-25 bpm Accelerations: 10X10 Decelerations: None Pain Assessment Pain Scale: 0 Pain Presence: None/Denies Pain Type: N/A Datetime: 06/01/2017 08:30 Stage of : Antepartum Datetime: 06/01/2017 08:13 Monitor Mode: External US Comments: NST started Datetime: 06/01/2017 08:09 Stage of : Antepartum Temperature Route: Oral Datetime: 06/01/2017 08:00 Maternal Assessment Level of Consciousness: Fully Conscious DTR's/Clonus: DTRs 2+ Headache: Denies Blurred Vision: No Respiratory Effort: Unlabored Breath Sounds, Left: Clear and Equal Breath Sounds, Right: Clear and Equal Nausea/Vomiting: Denies RUQ Epigastric Pain: Denies Facial Edema: None Labor Evaluation Frequency: 0 Monitor Mode: External Resting Tone [place]: Relaxed Pain Presence: None/Denies Pain Type: N/A Datetime: 06/01/2017 07:55 Assessment Type: Ongoing Assessment Maternal Assessment Level of Consciousness: Fully Conscious DTR's/Clonus: DTRs 2+; No Clonus Blurred Vision: No Respiratory Effort: Unlabored; Regular Rhythm; Equal Expansion Breath Sounds, Left: Clear and Equal Breath Sounds, Right: Clear and Equal Nausea/Vomiting: Denies RUQ Epigastric Pain: Denies Lower Extremities Edema: None Degree: None Upper Extremities Edema: None Degree: None Facial Edema: None Fall Risk Assessment History of Falling: (0) No Secondary Diagnosis: (0) No Ambulatory Aid: (0) Bedrest/Nurse Assist IV Therapy: (20) Yes Gait: (0) Normal/Bedrest/Immobile Mental Status: (0) Oriented to Own Ability Fall Score: 20 Fall Risk Score Definition: No Risk: No action required Datetime: 06/01/2017 07:00 Labor Evaluation Frequency: none Monitor Mode: External Resting Tone [place]: Relaxed Datetime: 06/01/2017 06:00 Labor Evaluation Frequency: x1 Monitor Mode: External Duration (sec)2399: 60 Quality: Mild Resting Tone [place]: Relaxed Contraction Comments: pt without complaint of uc pain. Datetime: 06/01/2017 05:00 Labor Evaluation Frequency: x3 Monitor Mode: External Duration (sec)2399: 50-60 Quality: Mild Resting Tone [place]: Relaxed Contraction Comments: pt without complaint of uc pain. Datetime: 06/01/2017 04:00 Labor Evaluation Frequency: x1 Monitor Mode: External Duration (sec)2399: 40 Quality: Mild Resting Tone [place]: Relaxed Contraction Comments: pt without complaint of uc pain. Datetime: 06/01/2017 03:00 Labor Evaluation Frequency: none Monitor Mode: External Resting Tone [place]: Relaxed Datetime: 06/01/2017 02:00 Labor Evaluation Frequency: none Monitor Mode: External Resting Tone [place]: Relaxed Datetime: 06/01/2017 01:00 Labor Evaluation Frequency: none Monitor Mode: External Resting Tone [place]: Relaxed Datetime: 06/01/2017 00:00 Labor Evaluation Frequency: none Monitor Mode: External Resting Tone [place]: Relaxed Datetime: 05/31/2017 23:52 Stage of : Antepartum Temperature Route: Oral Datetime: 05/31/2017 23:00 Labor Evaluation Frequency: none Monitor Mode: External Resting Tone [place]: Relaxed Datetime: 05/31/2017 22:00 Labor Evaluation Frequency: none Monitor Mode: External Resting Tone [place]: Relaxed Pain Assessment Pain Scale: 3 Pain Presence: Constant Pain Type: Ache Pain Location: Neck Pain Assessment Comments: No relief from headache. Datetime: 05/31/2017 21:00 Labor Evaluation Frequency: x1 Monitor Mode: External Duration (sec)2399: 60 Quality: Mild Resting Tone [place]: Relaxed Contraction Comments: pt without complaint of uc pain Pain Assessment Pain Scale: 3 Pain Presence: Constant Pain Type: Ache Pain Location: Head Pain Goal: 0 Pain Relief Measures: Pain Medication Given Pain Assessment Comments: pt states headache continues Datetime: 05/31/2017 20:58 Contraction Comments: [place] on after shower. Datetime: 05/31/2017 20:11 Heart Rate FHR Baseline Rate: 145 Monitor Mode: External US FHR Baseline Changes: No Baseline Change Variability: Moderate 6-25 bpm Accelerations: 10X10 Decelerations: Variable Comments: FHR appropriate for [place]. +FM noted. EFM off. Datetime: 05/31/2017 20:00 Labor Evaluation Frequency: x1 Monitor Mode: External Duration (sec)2399: 60 Quality: Mild Resting Tone [place]: Relaxed Contraction Comments: pt without complaint of uc pain. Pain Assessment Pain Scale: 3 Pain Presence: Constant Pain Type: Ache Pain Location: Head Pain Goal: 0 Pain Relief Measures: Pain Medication Given Datetime: 05/31/2017 19:49 Comments: EFM on. Datetime: 05/31/2017 19:39 Assessment Type: Ongoing Assessment Maternal Assessment Level of Consciousness: Fully Conscious DTR's/Clonus: DTRs 2+; No Clonus Blurred Vision: No Respiratory Effort: Unlabored; Regular Rhythm; Equal Expansion Breath Sounds, Left: Clear and Equal Breath Sounds, Right: Clear and Equal Nausea/Vomiting: Denies RUQ Epigastric Pain: Denies Lower Extremities Edema: None Degree: None Upper Extremities Edema: None Degree: None Facial Edema: None Fall Risk Assessment History of Falling: (0) No Secondary Diagnosis: (0) No Ambulatory Aid: (0) Bedrest/Nurse Assist IV Therapy: (20) Yes Gait: (0) Normal/Bedrest/Immobile Mental Status: (0) Oriented to Own Ability Fall Score: 20 Fall Risk Score Definition: No Risk: No action required Datetime: 05/31/2017 19:38 Stage of : Antepartum Temperature Route: Oral Datetime: 05/31/2017 18:17 Labor Evaluation Frequency: irritability Monitor Mode: External Resting Tone [place]: Relaxed Pain Assessment Pain Scale: 1 Pain Type: Cramping Datetime: 05/31/2017 17:20 Labor Evaluation Frequency: occasional irritability Monitor Mode: External Quality: Mild Resting Tone [place]: Relaxed Datetime: 05/31/2017 16:10 Labor Evaluation Frequency: 2 with irritability Monitor Mode: External Duration (sec)2399: 50 Quality: Mild Resting Tone [place]: Relaxed Contraction Comments: pt states she feels a cramping sensation about q 10 minutes. denies bleeding or leaking of fluid Datetime: 05/31/2017 15:04 Labor Evaluation Frequency: occasional irritability Monitor Mode: External Resting Tone [place]: Relaxed Datetime: 05/31/2017 14:06 Labor Evaluation Frequency: irritability Monitor Mode: External Quality: Mild Resting Tone [place]: Relaxed Datetime: 05/31/2017 13:46 Labor Evaluation Frequency: occasional irritability Monitor Mode: External Resting Tone [place]: Relaxed Datetime: 05/31/2017 12:36 Labor Evaluation Frequency: irritability Monitor Mode: External Quality: Mild Resting Tone [place]: Relaxed Heart Rate FHR Baseline Rate: 140 Monitor Mode: External US FHR Baseline Changes: No Baseline Change Variability: Moderate 6-25 bpm Accelerations: 15X15 Decelerations: None Category: Category I Pain Presence: None/Denies Datetime: 05/31/2017 11:22 Labor Evaluation Frequency: 0 Monitor Mode: External Resting Tone [place]: Relaxed Pain Presence: None/Denies Datetime: 05/31/2017 09:23 Labor Evaluation Frequency: irritability Monitor Mode: External Quality: Mild Resting Tone [place]: Relaxed Pain Presence: None/Denies Datetime: 05/31/2017 08:22 Labor Evaluation Frequency: occasional irritability Monitor Mode: External Quality: Mild Resting Tone [place]: Relaxed Pain Presence: None/Denies Datetime: 05/31/2017 08:18 Assessment Type: Ongoing Assessment Maternal Assessment Level of Consciousness: Fully Conscious DTR's/Clonus: DTRs 2+; No Clonus Headache: Denies Blurred Vision: No Respiratory Effort: Unlabored; Regular Rhythm; Equal Expansion Breath Sounds, Left: Clear and Equal Breath Sounds, Right: Clear and Equal Nausea/Vomiting: Denies RUQ Epigastric Pain: Denies Facial Edema: None Fall Risk Assessment History of Falling: (0) No Secondary Diagnosis: (0) No Ambulatory Aid: (0) Bedrest/Nurse Assist IV Therapy: (20) Yes Gait: (0) Normal/Bedrest/Immobile Mental Status: (0) Oriented to Own Ability Fall Score: 20 Fall Risk Score Definition: No Risk: No action required Datetime: 05/31/2017 07:00 Stage of : Antepartum Labor Evaluation Frequency: x3 Monitor Mode: External Duration (sec)2399: 40 Quality: Mild Resting Tone [place]: Relaxed Contraction Comments: irritability noted Datetime: 05/31/2017 05:47 Stage of : Antepartum Pain Assessment Pain Scale: 0 Pain Presence: None/Denies Pain Type: N/A Datetime: 05/31/2017 04:55 Stage of : Antepartum Labor Evaluation Frequency: X2 Monitor Mode: External Duration (sec)2399: 40 Quality: Mild Resting Tone [place]: Relaxed Datetime: 05/31/2017 04:01 Stage of : Antepartum Labor Evaluation Frequency: X2 Monitor Mode: External Duration (sec)2399: 40 Quality: Mild Resting Tone [place]: Relaxed Datetime: 05/31/2017 03:00 Stage of : Antepartum Labor Evaluation Frequency: 0 Monitor Mode: External Resting Tone [place]: Relaxed Datetime: 05/31/2017 02:43 Monitor Mode: External Datetime: 05/31/2017 01:26 Stage of : Antepartum Datetime: 05/31/2017 01:00 Labor Evaluation Frequency: 0 Monitor Mode: External Resting Tone [place]: Relaxed Datetime: 05/31/2017 00:00 Stage of : Antepartum Labor Evaluation Frequency: 0 Monitor Mode: External Resting Tone [place]: Relaxed Datetime: 05/30/2017 23:01 Stage of : Antepartum Labor Evaluation Frequency: X2 Monitor Mode: External Duration (sec)2399: 40-50 Quality: Mild Resting Tone [place]: Relaxed Datetime: 05/30/2017 22:43 Heart Rate FHR Baseline Rate: 150 Monitor Mode: External US Variability: Moderate 6-25 bpm Accelerations: 10X10 Decelerations: Variable Comments: Appropriate for [place] Datetime: 05/30/2017 22:18 Monitor Mode: External US Comments: APPLIED Datetime: 05/30/2017 22:15 Monitor Mode: External Datetime: 05/30/2017 22:13 Stage of : Antepartum Datetime: 05/30/2017 22:00 Stage of : Antepartum Labor Evaluation Frequency: 0 Monitor Mode: Palpation Resting Tone [place]: Relaxed Contraction Comments: Abdomen remains soft to palpation. Pt denies feeling cramping. Datetime: 05/30/2017 21:00 Stage of : Antepartum Labor Evaluation Frequency: X1 Monitor Mode: External Duration (sec)2399: 60 Quality: Mild Resting Tone [place]: Relaxed Contraction Comments: IRRITABILITY NOTED Datetime: 05/30/2017 20:51 Stage of : Antepartum Datetime: 05/30/2017 20:35 Monitor Mode: External Datetime: 05/30/2017 20:33 Stage of : Antepartum Datetime: 05/30/2017 20:00 Stage of : Antepartum Labor Evaluation Frequency: X1 Monitor Mode: Palpation Duration (sec)2399: 40 Quality: Mild Resting Tone [place]: Relaxed Datetime: 05/30/2017 19:32 Assessment Type: Ongoing Assessment Maternal Assessment Level of Consciousness: Fully Conscious DTR's/Clonus: DTRs 2+; No Clonus Headache: Denies Blurred Vision: No Respiratory Effort: Unlabored; Regular Rhythm; Equal Expansion Breath Sounds, Left: Clear and Equal Breath Sounds, Right: Clear and Equal Nausea/Vomiting: Denies RUQ Epigastric Pain: Denies Facial Edema: None Fall Risk Assessment History of Falling: (0) No Secondary Diagnosis: (0) No Ambulatory Aid: (0) Bedrest/Nurse Assist Gait: (0) Normal/Bedrest/Immobile Mental Status: (0) Oriented to Own Ability Datetime: 05/30/2017 19:28 Stage of : Antepartum Datetime: 05/30/2017 19:26 Stage of : Antepartum Monitor Mode: External Datetime: 05/30/2017 17:56 Labor Evaluation Frequency: irritability Monitor Mode: External Quality: Mild Resting Tone [place]: Relaxed Pain Assessment Pain Scale: 2 Pain Type: Cramping Datetime: 05/30/2017 17:07 Labor Evaluation Frequency: irritabiliity Monitor Mode: External Resting Tone [place]: Relaxed Datetime: 05/30/2017 15:59 Labor Evaluation Frequency: irritability Quality: Mild Resting Tone [place]: Relaxed Datetime: 05/30/2017 14:02 Labor Evaluation Frequency: 0 Monitor Mode: External Resting Tone [place]: Relaxed Datetime: 05/30/2017 12:57 Labor Evaluation Frequency: occasional irritability Monitor Mode: External Resting Tone [place]: Relaxed Datetime: 05/30/2017 12:56 Labor Evaluation Frequency: irritability Monitor Mode: External Resting Tone [place]: Relaxed Datetime: 05/30/2017 11:59 Labor Evaluation Frequency: occasional irritability Monitor Mode: External Quality: Mild Resting Tone [place]: Relaxed Datetime: 05/30/2017 10:59 Labor Evaluation Frequency: occasional irritability Monitor Mode: External Resting Tone [place]: Relaxed Datetime: 05/30/2017 09:32 Labor Evaluation Frequency: 1 with irritability Monitor Mode: External Quality: Mild Resting Tone [place]: Relaxed Datetime: 05/30/2017 09:04 Labor Evaluation Frequency: pt feels cramping Datetime: 05/30/2017 08:41 Heart Rate FHR Baseline Rate: 140 FHR Baseline Changes: No Baseline Change Variability: Moderate 6-25 bpm Accelerations: 15X15 Decelerations: None Comments: aga Datetime: 05/30/2017 07:28 Labor Evaluation Frequency: occasional irritability Datetime: 05/30/2017 07:15 Stage of : Antepartum Datetime: 05/30/2017 07:00 Maternal Assessment Level of Consciousness: Fully Conscious Labor Evaluation Frequency: NONE Monitor Mode: External Resting Tone [place]: Relaxed Comments: PT STATES + FM Pain Presence: None/Denies Pain Type: N/A Amniotic Fluid Amount: None Vaginal Bleeding: None Datetime: 05/30/2017 06:00 Labor Evaluation Frequency: NONE Monitor Mode: External Resting Tone [place]: Relaxed Pain Presence: None/Denies Pain Type: N/A Datetime: 05/30/2017 05:00 Monitor Mode: External Resting Tone [place]: Relaxed Pain Presence: None/Denies Pain Type: N/A Datetime: 05/30/2017 04:00 Labor Evaluation Frequency: NONE Monitor Mode: External Resting Tone [place]: Relaxed Pain Presence: None/Denies Pain Type: N/A Pain Assessment Comments: PT SLEEPINGWITH EVEN UNLABORED BREATHING Datetime: 05/30/2017 03:47 Pain Presence: None/Denies Pain Type: N/A Datetime: 05/30/2017 02:58 Labor Evaluation Frequency: NONE Monitor Mode: External Resting Tone [place]: Relaxed Pain Presence: None/Denies Pain Type: N/A Datetime: 05/30/2017 02:00 Labor Evaluation Frequency: NONE Monitor Mode: External Resting Tone [place]: Relaxed Pain Presence: None/Denies Pain Type: N/A Pain Assessment Comments: PT STATES SHE FEELS MUCH BETTER SINCE THE IV WAS STARTED Datetime: 05/30/2017 01:00 Labor Evaluation Frequency: NONE Monitor Mode: External Resting Tone [place]: Relaxed Pain Presence: None/Denies Pain Type: N/A Pain Assessment Comments: PT SLEEPING WITH EVEN UNLABORED BREATHING Datetime: 05/30/2017 00:00 Labor Evaluation Frequency: NONE Monitor Mode: External Resting Tone [place]: Relaxed Pain Presence: None/Denies Pain Type: N/A Datetime: 05/29/2017 23:33 Labor Evaluation Frequency: NONE Monitor Mode: External Quality: Mild Resting Tone [place]: Relaxed Datetime: 05/29/2017 23:00 Labor Evaluation Frequency: NONE Monitor Mode: External Resting Tone [place]: Relaxed Datetime: 05/29/2017 22:30 Heart Rate FHR Baseline Rate: 140 Monitor Mode: External US Variability: Moderate 6-25 bpm Accelerations: None Decelerations: None Comments: U/S REMOVED. ORDER FOR NST Q SHIFT COMPLETED. Datetime: 05/29/2017 22:16 Vaginal Exam Membrane Status: Intact Datetime: 05/29/2017 22:00 Heart Rate FHR Baseline Rate: 140 Monitor Mode: External US Variability: Moderate 6-25 bpm Comments: VERY ACTIVE FETUS Pain Assessment Pain Scale: 2 Pain Presence: Intermittent Pain Type: Cramping Pain Goal: 1 Datetime: 05/29/2017 21:46 Assessment Type: Admission Assessment Vaginal Bleeding: None Maternal Assessment Level of Consciousness: Fully Conscious DTR's/Clonus: DTRs 2+; No Clonus Headache: Denies Blurred Vision: No Respiratory Effort: Unlabored; Regular Rhythm; Equal Expansion Breath Sounds, Left: Clear and Equal Breath Sounds, Right: Clear and Equal Nausea/Vomiting: Denies RUQ Epigastric Pain: Denies Lower Extremities Edema: None Degree: None Upper Extremities Edema: None Degree: None Facial Edema: None Fall Risk Assessment History of Falling: (0) No Secondary Diagnosis: (0) No Ambulatory Aid: (0) Bedrest/Nurse Assist IV Therapy: (0) No Gait: (0) Normal/Bedrest/Immobile Mental Status: (0) Oriented to Own Ability Fall Score: 0 Fall Risk Score Definition: No Risk: No action required Pain Assessment Pain Scale: 2 Pain Presence: Intermittent Pain Type: Cramping Pain Location: Abdomen Pain Goal: 1 Datetime: 05/29/2017 21:00 Heart Rate FHR Baseline Rate: 145 Monitor Mode: External US Variability: Moderate 6-25 bpm Accelerations: None Decelerations: None Comments: AGA Pain Assessment Pain Scale: 3 Pain Presence: Intermittent Pain Type: Cramping Pain Goal: 1 Datetime: 05/29/2017 20:06 Comments: VERY ACTIVE FETUS Datetime: 05/29/2017 20:00 Assessment Type: Admission Assessment Maternal Assessment Level of Consciousness: Fully Conscious DTR's/Clonus: DTRs 2+; No Clonus Headache: Denies Blurred Vision: No Respiratory Effort: Unlabored; Regular Rhythm; Equal Expansion Breath Sounds, Left: Clear and Equal Breath Sounds, Right: Clear and Equal Nausea/Vomiting: Denies RUQ Epigastric Pain: Denies Lower Extremities Edema: None Degree: None Upper Extremities Edema: None Degree: None Facial Edema: None Fall Risk Assessment History of Falling: (0) No Secondary Diagnosis: (0) No Ambulatory Aid: (0) Bedrest/Nurse Assist IV Therapy: (0) No Gait: (0) Normal/Bedrest/Immobile Mental Status: (0) Oriented to Own Ability Fall Score: 0 Fall Risk Score Definition: No Risk: No action required Heart Rate FHR Baseline Rate: 150 Monitor Mode: External US Variability: Moderate 6-25 bpm Accelerations: None Decelerations: None Comments: AGA Pain Assessment Pain Scale: 3 Pain Presence: Intermittent Pain Type: Cramping Pain Location: Abdomen Pain Goal: 1 Datetime: 05/29/2017 19:12 Stage of : OB Triage Datetime: 05/29/2017 19:00 Stage of : OB Triage Labor Evaluation Frequency: IRRITABILITY Monitor Mode: External Duration (sec)2399: 20 Quality: Mild Heart Rate FHR Baseline Rate: 145 Monitor Mode: External US FHR Baseline Changes: No Baseline Change Variability: Moderate 6-25 bpm Accelerations: 15X15 Decelerations: None Pain Assessment Pain Scale: 5 Pain Presence: Intermittent Pain Type: Cramping Pain Location: Abdomen; Back Pain Relief Measures: Comfort Measures Datetime: 05/29/2017 18:00 Stage of : OB Triage Labor Evaluation Frequency: X1 WITH IRRITABILITY Monitor Mode: External Duration (sec)2399: 80 Quality: Mild Heart Rate FHR Baseline Rate: 145 Monitor Mode: External US FHR Baseline Changes: No Baseline Change Variability: Moderate 6-25 bpm Accelerations: 15X15 Decelerations: None Pain Assessment Pain Scale: 5 Pain Presence: Intermittent Pain Type: Cramping Pain Location: Abdomen; Back Pain Relief Measures: Comfort Measures Datetime: 05/29/2017 17:40 Stage of : OB Triage Datetime: 05/29/2017 17:28 Stage of : OB Triage Datetime: 05/29/2017 17:00 Stage of : OB Triage Labor Evaluation Frequency: X1 WITH IRRITABILITY Monitor Mode: External Duration (sec)2399: 80 Quality: Mild Heart Rate FHR Baseline Rate: 145 Monitor Mode: External US FHR Baseline Changes: No Baseline Change Variability: Moderate 6-25 bpm Accelerations: 15X15 Decelerations: None Pain Assessment Pain Scale: 5 Pain Presence: Intermittent Pain Type: Cramping Pain Location: Abdomen; Back Pain Relief Measures: Comfort Measures Datetime: 05/29/2017 16:13 Stage of : OB Triage Monitor Mode: External Monitor Mode: External US Pain Assessment Pain Scale: 5 Pain Presence: Intermittent Pain Type: Cramping Pain Location: Abdomen; Back Pain Relief Measures: Comfort Measures Datetime: 05/29/2017 16:05 Time of Arrival: 05/29/2017 16:00 EGA: 24.2 Arrived By: Ambulance Arrived From: Home Chief Complaint: abdominal pain,contractions Movement: Present Contractions: Irregular Rupture of Membranes: Denies Vaginal Bleeding: None Vaginal Discharge: Denies Recent Sexual Intercouse: Denies Abdominal Trauma: Not Applicable Patient Complaints: Cramping Initial Plan: efm,v/s Datetime: 05/27/2017 19:18 Fall Score: 0 Fall Risk Score Definition: No Risk: No action required Datetime: 05/27/2017 18:20 Fall Score: 0 Fall Risk Score Definition: No Risk: No action required Datetime: 05/27/2017 18:19 EGA: 24.0 Datetime: 05/20/2017 22:49 Fall Score: 0 Fall Risk Score Definition: No Risk: No action required Datetime: 05/20/2017 22:48 EGA: 23.0
== END 2017-07-13 00:18 | disposition home or self-care (01) ==
LOC: L-D 21:08 → OBT 21:08
PROVIDERS: ATTEND Obstetrics & Gynecology
DX: O62.9 Abnormality of forces of labor, unspecified (principal); Z3A.30 30 weeks gestation of pregnancy
CPT/HCPCS: 76817; 80307; 81001; 82731

== ENCOUNTER 2017-07-28 01:59 | Outpatient (CLI) | payer MEDICAID ==
[~2017-07-28 01:59] MED LIST changes: +FERR134T PO
[2017-07-28 02:38] VITALS: BP 117/75; PULSE 100; RESP 18
[2017-07-28] MEDS ORDERED: PREN1TAB79 PO (02:39)
[2017-07-28] MEDS ORDERED: IRON1TAB78 PO (02:39)
[2017-07-28] MEDS ORDERED: URSO300C3 PO (02:39)
--- NOTE | 2017-07-28 04:00 | RADRPT ---
PROCEDURE: US OB biophysical profile. CLINICAL INDICATION: decreased movements TECHNIQUE: Multiple sonographic images of the pelvis were obtained. The images were reviewed on a PACS workstation. COMPARISON: No pertinent prior examinations were submitted for comparison. FINDINGS: There is a single viable intrauterine gestation. Cardiac activity is present with 161 beats per min [place]. There is a vertex presentation. The placenta is posterior, grade 1 appearance. There is a normal amount of amniotic fluid with an MALLIKA = 11 cm. Biophysical profile: movement 2/2 tone 2/2. breathing 2/2 MALLIKA 2/2 Total 05/06 IMPRESSION: Normal biophysical profile. RPTAT: HIKT . .Luis Rodas MD, Date Time Electronically viewed and signed by .Luis Rodas MD, on 07/28/2017 04:00 .T/
--- NOTE | 2017-07-28 04:28 | PN ---
Triage Information Date/Time Reason for visit: DFM Weeks of Gestation 32+ /Para 3/0 Diabetes: none Hypertention: none Objective Vital Signs Date Time Temp Pulse Resp B/P Pulse Ox O2 Delivery O2 Flow Rate FiO2 07/28/17 02:38 98.1 100 18 117/75 Room Air Heart Rate: 140's Contractions: None Disposition: Discharge Assessment/Plan feels the baby moves.No CTXs NST reassuring BPP 05/06 -->discharge with precautions -->patient's questions answered --->follow up with pMD --->NST /BPP in 2 days MANOJ RAMESH M.D. Jul 28, 2017 04:28
--- NOTE | 2017-07-28 05:20 | TRIAGE ---
OB Triage Datetime Report Generated by CPN: 07/28/2017 05:19 Datetime: 07/28/2017 04:23 Labor Evaluation Frequency: X1 Monitor Mode: External Duration (sec)2399: 60 Quality: Mild Pattern: Normal: <= 5 Contractions in 10 Minutes Resting Tone [place]: Relaxed Heart Rate FHR Baseline Rate: 135 Monitor Mode: External US Variability: Moderate 6-25 bpm Accelerations: 15X15 Decelerations: None Category: Category I Datetime: 07/28/2017 03:50 Monitor Mode: External US Datetime: 07/28/2017 03:40 Stage of : OB Triage Labor Evaluation Frequency: X1 Monitor Mode: External Duration (sec)2399: 120 Pattern: Normal: <= 5 Contractions in 10 Minutes Resting Tone [place]: Relaxed Heart Rate FHR Baseline Rate: 130 Monitor Mode: External US Variability: Moderate 6-25 bpm Accelerations: 15X15 Decelerations: None Category: Category I Datetime: 07/28/2017 02:55 Stage of : OB Triage Labor Evaluation Frequency: IRREGULAR Monitor Mode: External Duration (sec)2399: 60 Resting Tone [place]: Relaxed Heart Rate FHR Baseline Rate: 135 Monitor Mode: External US Variability: Moderate 6-25 bpm Accelerations: 15X15 Decelerations: None Category: Category I Datetime: 07/28/2017 02:43 Stage of : OB Triage Maternal Assessment Level of Consciousness: Fully Conscious DTR's/Clonus: DTRs 2+; No Clonus Headache: Denies Blurred Vision: No Respiratory Effort: Unlabored; Regular Rhythm; Equal Expansion Breath Sounds, Left: Clear and Equal Breath Sounds, Right: Clear and Equal Nausea/Vomiting: Denies RUQ Epigastric Pain: Denies Lower Extremities Edema: Bilateral Lower Extremities Degree: 2+ Upper Extremities Edema: None Degree: None Facial Edema: None Temperature Route: Oral Fall Risk Assessment History of Falling: (0) No Secondary Diagnosis: (0) No Ambulatory Aid: (0) Bedrest/Nurse Assist IV Therapy: (0) No Gait: (0) Normal/Bedrest/Immobile Mental Status: (0) Oriented to Own Ability Fall Score: 0 Fall Risk Score Definition: No Risk: No action required Pain Assessment Pain Scale: 0 Pain Presence: None/Denies Pain Type: N/A Datetime: 07/28/2017 02:05 Contraction Comments: APPLIED Comments: APPLIED Datetime: 07/28/2017 02:00 Time of Arrival: 07/28/2017 02:00 EGA: 32.6 Arrived By: Stretcher Arrived From: Home Chief Complaint: DECREASED MOVEMENT SINCE 10 PM Movement: Present Contractions: Denies/Absent Rupture of Membranes: Denies Vaginal Discharge: Denies Recent Sexual Intercouse: Denies Abdominal Trauma: Not Applicable Patient Complaints: Other Time Provider Notified: 07/28/2017 02:37 Provider Notified: DR. RAMESH Initial Plan: EFM, CALL OB Datetime: 06/02/2017 07:14 Fall Score: 20 Fall Risk Score Definition: No Risk: No action required Datetime: 06/01/2017 19:26 Fall Score: 0 Fall Risk Score Definition: No Risk: No action required Datetime: 06/01/2017 07:55 Fall Score: 20 Fall Risk Score Definition: No Risk: No action required Datetime: 05/31/2017 19:39 Fall Score: 20 Fall Risk Score Definition: No Risk: No action required Datetime: 05/31/2017 08:18 Fall Score: 20 Fall Risk Score Definition: No Risk: No action required Datetime: 05/29/2017 21:46 Fall Score: 0 Fall Risk Score Definition: No Risk: No action required Datetime: 05/29/2017 20:00 Fall Score: 0 Fall Risk Score Definition: No Risk: No action required Datetime: 05/29/2017 16:05 EGA: 24.2 Datetime: 05/27/2017 19:18 Fall Score: 0 Fall Risk Score Definition: No Risk: No action required Datetime: 05/27/2017 18:20 Fall Score: 0 Fall Risk Score Definition: No Risk: No action required Datetime: 05/27/2017 18:19 EGA: 24.0 Datetime: 05/20/2017 22:49 Fall Score: 0 Fall Risk Score Definition: No Risk: No action required Datetime: 05/20/2017 22:48 EGA: 23.0
== END 2017-07-28 05:00 | disposition home or self-care (01) ==
LOC: L-D 01:59 → OBT 01:59
PROVIDERS: ATTEND Obstetrics & Gynecology
DX: O36.8130 Decreased fetal movements, third trimester, not applicable or unspecified (principal); Z3A.32 32 weeks gestation of pregnancy
CPT/HCPCS: 76818; Z7500; G0463

== ENCOUNTER 2017-08-05 09:50 | Outpatient (CLI) | payer SELFPAY ==
[~2017-08-05 09:50] MED LIST changes: +PREN1TAB79 PO; -PRENAT PO; +URSO300C3 PO
[2017-08-05] MEDS ORDERED: BETAMET NA PHOS/AC(6 MG/ML) 5ML INJ IM ONE (10:30)
--- NOTE | 2017-08-05 10:48 | RADRPT ---
PROCEDURE: US OB biophysical profile. CLINICAL INDICATION: labor, evaluate well-being TECHNIQUE: Multiple sonographic images of the pelvis were obtained. The images were reviewed on a PACS workstation. COMPARISON: 08/04/2017 FINDINGS: There is a single viable intrauterine gestation. There is a normal amount of amniotic fluid with an MALLIKA = 13.6 cm . Cardiac activity is present with 138 beats per minute There is a vertex presentation. The placenta is posterior. Biophysical profile: movement 2/2 tone 2/2. breathing 2/2 MALLIKA 2/2 Total 05/06 IMPRESSION: 1. Normal biophysical profile of 05/06. 2. Single viable intrauterine gestation in cephalic presentation. 3. Posterior placenta without evidence of previa or abruption. RPTAT:AAJJ Physician Jacinto Date Time Electronically viewed and signed by Vance Kathleen Physician on 08/05/2017 10:48 ELE/
--- NOTE | 2017-08-05 11:02 | PN ---
Triage Information Date/Time Reason for visit: NST BPP Cholestasis of pregnacy Weeks of Gestation 34+ /Para 2/0 Diabetes: none Hypertention: none Objective Heart Rate: 140's Contractions: None Disposition: Discharge Assessment/Plan Retrun to Hospital for NST BPP Instructions discussed with patient patient's questions answered MANOJ RAMESH M.D. Aug 05, 2017 11:02
--- NOTE | 2017-08-05 11:21 | TRIAGE ---
OB Triage Datetime Report Generated by CPN: 08/05/2017 11:21 Datetime: 08/05/2017 10:23 Level of Consciousness: Fully Conscious DTR's/Clonus: DTRs 1+ Headache: Denies Blurred Vision: No Respiratory Effort: Unlabored Breath Sounds, Left: Clear and Equal Breath Sounds, Right: Clear and Equal Nausea/Vomiting: Denies RUQ Epigastric Pain: Denies Facial Edema: None Frequency: NONE Monitor Mode: External Resting Tone [place]: Relaxed FHR Baseline Rate: 135 Monitor Mode: External US Variability: Moderate 6-25 bpm Accelerations: 15X15 Decelerations: None Category: Category I Pain Scale: 0 Pain Presence: None/Denies Pain Goal: 0 Membrane Status: Intact Datetime: 08/05/2017 09:58 Assessment Type: Triage Level of Consciousness: Fully Conscious DTR's/Clonus: DTRs 2+; No Clonus Headache: Denies Blurred Vision: No Respiratory Effort: Unlabored; Regular Rhythm; Equal Expansion Breath Sounds, Left: Clear and Equal Breath Sounds, Right: Clear and Equal Nausea/Vomiting: Denies RUQ Epigastric Pain: Denies Lower Extremities Edema: None Degree: None Upper Extremities Edema: None Degree: None Facial Edema: None History of Falling: (0) No Secondary Diagnosis: (0) No Ambulatory Aid: (0) Bedrest/Nurse Assist IV Therapy: (0) No Gait: (0) Normal/Bedrest/Immobile Mental Status: (0) Oriented to Own Ability Fall Score: 0 Fall Risk Score Definition: No Risk: No action required Datetime: 08/05/2017 09:45 Time of Arrival: 08/05/2017 09:45 EGA: 34.1 Arrived By: Ambulatory Arrived From: Home Chief Complaint: PT CAME IN FOR 2ND SODE OF STEROIDS TODAY. DENIES ANY PAIN AND STATES + MOV EMENT Movement: Present Contractions: Denies/Absent Rupture of Membranes: Denies Vaginal Discharge: Denies Recent Sexual Intercouse: Denies Abdominal Trauma: Not Applicable Additional Patient Complaints: NONE Time Provider Notified: 08/05/2017 09:55 Provider Notified: DAYSI Initial Plan: KIRSTY JAVIER AND BETA
== END 2017-08-05 11:03 | disposition home or self-care (01) ==
LOC: L-D 09:50 → OBT 09:50
PROVIDERS: ATTEND Obstetrics & Gynecology
DX: O26.613 Liver and biliary tract disorders in pregnancy, third trimester (principal); K83.1 Obstruction of bile duct; Z3A.34 34 weeks gestation of pregnancy
CPT/HCPCS: 76818; 96372; G0463; J0702

== ENCOUNTER 2017-08-06 14:53 | Outpatient (CLI) | payer MEDICAID ==
[~2017-08-06] VITALS: Ht 152.4 cm; Wt 91.3 kg
[2017-08-06 15:00] VITALS: BMI 39.3
[2017-08-06 15:01] VITALS: Ht 152.4 cm; Wt 91.3 kg
[2017-08-06 15:02] VITALS: BP 120/78
--- NOTE | 2017-08-06 17:27 | RADRPT ---
PROCEDURE: Obstetrical ultrasound for biophysical profile CLINICAL INDICATION: Biophysical profile. . TECHNIQUE: Obstetrical ultrasound of the uterus for biophysical profile. Transabdominal and transvaginal views are obtained. COMPARISON: 08/05/2017 FINDINGS: Single intrauterine gestation. Presentation: Cephalic. Placenta: Posterior No evidence of placental abruption. No evidence of placenta previa. Trace amount of endocervical fluid is present with cervical length measuring 3.39 cm. breathing movement = 2/2 tone = 2/2 motion = 2/2 MALLIKA = 2/2 MALLIKA = 13.0 cm heart rate: 140 beats per minute IMPRESSION: Single intrauterine gestation. Biophysical profile 05/06 RPTAT: AADD .Tani See MD, Date Time Electronically viewed and signed by .Tani See MD, on 08/06/2017 17:27 .B/
--- NOTE | 2017-08-06 19:35 | TRIAGE ---
OB Triage Datetime Report Generated by CPN: 08/06/2017 19:35 Datetime: 08/06/2017 18:24 Frequency: X1 Monitor Mode: External Duration (sec)2399: 30-60 Pattern: Normal: <= 5 Contractions in 10 Minutes Resting Tone [employer]: Relaxed FHR Baseline Rate: 135 Monitor Mode: External US Variability: Moderate 6-25 bpm Accelerations: 15X15 Decelerations: None Category: Category I Membrane Status: Intact Datetime: 08/06/2017 17:50 Frequency: 0 Pattern: Normal: <= 5 Contractions in 10 Minutes FHR Baseline Rate: 145 Accelerations: 15X15 Decelerations: None Category: Category I Datetime: 08/06/2017 17:46 Dilatation (cms): 0.0 Exam By: KHEMANI Datetime: 08/06/2017 16:54 Stage of : OB Triage Datetime: 08/06/2017 16:04 Frequency: IRREGULAR Duration (sec)2399: 30-50 Pattern: Normal: <= 5 Contractions in 10 Minutes FHR Baseline Rate: 135 Monitor Mode: External US Variability: Moderate 6-25 bpm Accelerations: 15X15 Decelerations: None Category: Category I Pain Scale: 6 Pain Presence: Intermittent Pain Type: Cramping; Ache Pain Location: Abdomen; Back Pain Goal: 0 Pain Relief Measures: Comfort Measures Datetime: 08/06/2017 14:55 Stage of : OB Triage Assessment Type: Triage Level of Consciousness: Fully Conscious DTR's/Clonus: DTRs 2+; No Clonus Headache: Denies Blurred Vision: No Respiratory Effort: Unlabored; Regular Rhythm; Equal Expansion Breath Sounds, Left: Clear and Equal Breath Sounds, Right: Clear and Equal Nausea/Vomiting: Denies RUQ Epigastric Pain: Denies Lower Extremities Edema: Bilateral Lower Extremities Degree: Pitting Upper Extremities Edema: None Degree: None Facial Edema: None Temperature Route: Oral History of Falling: (0) No Secondary Diagnosis: (0) No Ambulatory Aid: (0) Bedrest/Nurse Assist IV Therapy: (0) No Gait: (0) Normal/Bedrest/Immobile Mental Status: (0) Oriented to Own Ability Fall Score: 0 Fall Risk Score Definition: No Risk: No action required Frequency: 0 Monitor Mode: External FHR Baseline Rate: 145 Monitor Mode: External US Variability: Moderate 6-25 bpm Accelerations: 15X15 Decelerations: None Category: Category I Pain Scale: 6 Pain Presence: Intermittent Pain Type: Cramping; Ache Pain Location: Abdomen; Back Pain Goal: 0 Pain Relief Measures: Comfort Measures Datetime: 08/06/2017 14:54 Time of Arrival: 08/06/2017 14:45 EGA: 34.2 Arrived By: Ambulance Arrived From: Home Chief Complaint: C/O: UC'S, BACK PAIN Movement: Present Contractions: Irregular Time Contractions Began: 08/05/2017 12:30 Rupture of Membranes: Denies Vaginal Bleeding: None Vaginal Discharge: Denies Recent Sexual Intercouse: Denies Abdominal Trauma: Not Applicable Patient Complaints: Contractions; Cramping; Back Pain Time Provider Notified: 08/06/2017 16:51 Provider Notified: JUSTIN Initial Plan: EFMX2, CALL Datetime: 08/05/2017 11:05 Stage of : OB Triage Level of Consciousness: Fully Conscious DTR's/Clonus: DTRs 1+ Headache: Denies Breath Sounds, Left: Clear and Equal Breath Sounds, Right: Clear and Equal Nausea/Vomiting: Denies RUQ Epigastric Pain: Denies Frequency: NONE Monitor Mode: External Resting Tone [employer]: Relaxed FHR Baseline Rate: 135 Monitor Mode: External US Variability: Moderate 6-25 bpm Accelerations: 15X15 Decelerations: None Category: Category I Pain Scale: 0 Pain Presence: None/Denies Pain Goal: 0 Membrane Status: Intact Datetime: 08/05/2017 11:04 Time of Arrival: 08/06/2017 14:45 EGA: 34.2 Arrived By: Ambulance Arrived From: Home Movement: Present Rupture of Membranes: Denies Vaginal Discharge: Denies Recent Sexual Intercouse: Denies Abdominal Trauma: Not Applicable Patient Complaints: Contractions; Cramping; Back Pain
--- NOTE | 2017-08-06 23:06 | PN ---
Triage Information Date/Time 08/06/2017 Reason for visit: Uterine contractions Weeks of Gestation 34 weeks and 1 day /Para Diabetes: none Hypertention: none Additional information 21-year-old with IUP at 34 weeks and 2 days intact with complaint of low back pain and contractions. Denies any leaking of fluid, vaginal bleeding or decreased movement. She was examined and was noted to be closed, thick and high. Patient had a history of cholestasis of and current has been seen yesterday in triage and received the first dose of steroid. She also received a second dose of steroid today in triage. Objective Vital Signs Date Time Temp Pulse Resp B/P Pulse Ox O2 Delivery O2 Flow Rate FiO2 08/06/17 15:02 98.1 120/78 Room Air Heart Rate: 130's Contractions: None Exam General appearance: Alert and oriented 4. Patient does not appear to be in any acute distress. Abdomen: Soft, gravid, fundal height consistent with gestational age NST: Category 1 vaginal examination: Cervix closed and thick and high UA negative BPP: 05/06 MALLIKA: 13 cm UA negative Results/Medications Results 24 hrs Laboratory Tests Test 08/06/17 15:50 Urine Color STRAW Urine Clarity CLEAR Urine pH 6.0 Urine Specific [place] 1.008 Urine Ketones NEGATIVE Urine Nitrite NEGATIVE Urine Bilirubin NEGATIVE Urine Urobilinogen NEGATIVE Urine Leukocyte Esterase NEGATIVE Urine Hemoglobin NEGATIVE Urine Glucose NEGATIVE Urine Total Protein NEGATIVE Imaging Results PROCEDURE: Obstetrical ultrasound for biophysical profile CLINICAL INDICATION: Biophysical profile. . TECHNIQUE: Obstetrical ultrasound of the uterus for biophysical profile. Transabdominal and transvaginal views are obtained. COMPARISON: 08/05/2017 FINDINGS: Single intrauterine gestation. Presentation: Cephalic. Placenta: Posterior No evidence of placental abruption. No evidence of placenta previa. Trace amount of endocervical fluid is present with cervical length measuring 3.39 cm. breathing movement = 2/2 tone = 2/2 motion = 2/2 MALLIKA = 2/2 MALLIKA = 13.0 cm heart rate: 140 beats per minute IMPRESSION: Single intrauterine gestation. Biophysical profile 05/06 Disposition: Discharge Assessment/Plan IUP at 34 weeks and 1 day Low back pain No evidence of labor testing reassuring DC home Strict labor precaution and kick count and follow-up within 24-48 hours with her primary OB discussed with the patient Return to triage. Any other problems TIFFANI FORBES MD Aug 06, 2017 23:06
== END 2017-08-06 19:35 | disposition home or self-care (01) ==
LOC: L-D 14:53 → OBT 14:53 → L-D 18:21 → OBT 19:35
PROVIDERS: ATTEND Obstetrics & Gynecology
DX: O62.9 Abnormality of forces of labor, unspecified (principal); O26.899 Other specified pregnancy related conditions, unspecified trimester; M54.5 Low back pain; Z3A.34 34 weeks gestation of pregnancy
CPT/HCPCS: 76817; 76818; 81003; Z7500; G0463

== ENCOUNTER 2017-08-18 01:17 | Outpatient (CLI) | payer MEDICAID ==
[~2017-08-18] VITALS: Ht 152.4 cm; Wt 93.7 kg
[2017-08-18 01:31] VITALS: Ht 152.4 cm; Wt 93.7 kg
[2017-08-18 01:32] VITALS: BP 114/61; PULSE 93; RESP 18
[2017-08-18] MEDS ORDERED: TERBUTALINE 1 MG/ML INJ SC ONE (02:30)
--- NOTE | 2017-08-18 02:44 | RADRPT ---
PROCEDURE: US OB biophysical profile. CLINICAL INDICATION: Decreased movement. 36-week gestation. TECHNIQUE: Multiple sonographic images of the pelvis were obtained. The images were reviewed on a PACS workstation. COMPARISON: 08/06/2017 FINDINGS: There is a single live intrauterine gestation. There is a normal amount of amniotic fluid with an MALLIKA = 10.21 cm cm. The cervix is shortened, measuring 2.2 cm in length. Trace fluid is present in the endocervical danica l. Cardiac activity is present with 132 beats per minute. There is a vertex presentation. The placenta is posterior and grade 2. MVP = 3.6 cm Biophysical profile: movement 2/2 tone 2/2. breathing 2/2 MALLIKA 2/2 Total 05/06 IMPRESSION: Normal biophysical profile. Slightly shortened cervix, measuring 2.2 cm in length and with trace fluid in the endocervical canal . . RPTAT: HLBE Physician Latonya Date Time Electronically viewed and signed by Physician Latonya on 08/18/2017 02:44 LE/
[2017-08-18 04:58] LABS: ADD UMIC NO; UR AMORPHOUS CRYSTAL MANY /HPF (NONE SEEN); UR ASCORBIC ACID 40 mg/dL (NEGATIVE); UR BACTERIA FEW /HPF (NONE SEEN); UR BILIRUBIN (Dip) NEGATIVE (NEGATIVE); UR BLOOD (Dip) NEGATIVE (NEGATIVE); UR CLARITY SLIGHTLY CLOUDY (CLEAR); UR COLOR YELLOW (YELLOW); UR GLUCOSE (Dip) 3+ mg/dL (NEGATIVE); UR KETONES (Dip) TRACE mg/dL (NEGATIVE); UR LEUKOCYTE ESTERASE (Dip) NEGATIVE Leu/ul (NEGATIVE); UR NITRITE (Dip) NEGATIVE (NEGATIVE); UR RBC 1 /HPF (0-5); UR SPECIFIC GRAVITY (Dip) 1.009 (1.003-1.030); UR SQUAMOUS EPITHELIAL CELL FEW /HPF (FEW); UR TOTAL PROTEIN (Dip) NEGATIVE (NEGATIVE); UR UROBILINOGEN (Dip) NEGATIVE (NEGATIVE)
--- NOTE | 2017-08-18 06:44 | PN ---
Triage Information Date/Time Aug 18, 2017 Reason for visit: Uterine contractions Weeks of Gestation 36 /Para 3/0 Diabetes: none Hypertention: none Additional information Also c/o decreased movement. PMHx: Cholestasis of . PSHx: Cholecystectomy. NKDA. Objective Vital Signs Date Time Temp Pulse Resp B/P Pulse Ox O2 Delivery O2 Flow Rate FiO2 08/18/17 01:32 98.6 93 18 114/61 Room Air Heart Rate: 130's Heart Rate Comments Accels to 160 bpm. No decels. Contractions: < 5 Minutes Apart Exam Deferred. Results/Medications Results 24 hrs Laboratory Tests Test 08/18/17 01:45 Urine Color YELLOW Urine Clarity SLIGHTLY CLOUDY A Urine pH 7.0 Urine Specific [place] 1.009 Urine Ketones TRACE A Urine Nitrite NEGATIVE Urine Bilirubin NEGATIVE Urine Urobilinogen NEGATIVE Urine Leukocyte Esterase NEGATIVE Urine Microscopic RBC 1 Urine Microscopic WBC 2 Urine Squamous Epithelial Cells FEW Urine Amorphous Crystals MANY A Urine Bacteria FEW A Urine Hemoglobin NEGATIVE Urine Glucose 3+ H Urine Total Protein NEGATIVE Imaging Results BPP 8/8. MALLIKA 10.2. Cx 2.2 length and closed. Disposition: Discharge Assessment/Plan A: IUP at 36 weeks. False labor. Cholestasis of . P: After p.o.hydration and p.o. terbutaline the contractions abated. Pt to be delivered in one week due to the cholestasis. Pt was due to go to NST clinic today but I told her she just had one x 5 hours so she can call them and tell them that. Next appt is 08/20. D/C home. Labor precautions reviewed. SCOTT STEVEN MD Aug 18, 2017 06:44
--- NOTE | 2017-08-18 07:35 | TRIAGE ---
OB Triage Datetime Report Generated by CPN: 08/18/2017 07:35 Datetime: 08/18/2017 06:00 Labor Evaluation Frequency: IRRITABILITY NOTED Monitor Mode: External Heart Rate FHR Baseline Rate: 135 Monitor Mode: External US FHR Baseline Changes: No Baseline Change Variability: Moderate 6-25 bpm Accelerations: 15X15 Decelerations: None Category: Category I Datetime: 08/18/2017 05:04 Labor Evaluation Frequency: IRRITABILITY NOTED Monitor Mode: External Heart Rate FHR Baseline Rate: 135 Monitor Mode: External US FHR Baseline Changes: No Baseline Change Variability: Moderate 6-25 bpm Accelerations: 15X15 Decelerations: None Category: Category I Datetime: 08/18/2017 04:00 Labor Evaluation Frequency: IRREGULAR Monitor Mode: External Duration (sec)2399: 50-100 Quality: Mild Pattern: Normal: <= 5 Contractions in 10 Minutes Resting Tone [place]: Relaxed Heart Rate FHR Baseline Rate: 135 Monitor Mode: External US FHR Baseline Changes: No Baseline Change Variability: Moderate 6-25 bpm Accelerations: 15X15 Decelerations: None Category: Category I Datetime: 08/18/2017 03:00 Labor Evaluation Frequency: IRRITABILITY NOTED Monitor Mode: External Heart Rate FHR Baseline Rate: 135 Monitor Mode: External US FHR Baseline Changes: No Baseline Change Variability: Moderate 6-25 bpm Accelerations: 15X15 Decelerations: None Category: Category I Datetime: 08/18/2017 01:54 Labor Evaluation Frequency: 2-5 Monitor Mode: External Duration (sec)2399: 50-100 Quality: Mild Pattern: Normal: <= 5 Contractions in 10 Minutes Resting Tone [place]: Relaxed Heart Rate FHR Baseline Rate: 135 Monitor Mode: External US Variability: Moderate 6-25 bpm Accelerations: 15X15 Decelerations: None Category: Category I Datetime: 08/18/2017 01:36 Monitor Mode: Palpation Quality: Mild Resting Tone [place]: Relaxed Datetime: 08/18/2017 01:29 Assessment Type: Triage Maternal Assessment Level of Consciousness: Fully Conscious DTR's/Clonus: DTRs 2+; No Clonus Headache: Denies Blurred Vision: No Respiratory Effort: Unlabored; Regular Rhythm; Equal Expansion Breath Sounds, Left: Clear and Equal Breath Sounds, Right: Clear and Equal Nausea/Vomiting: Denies RUQ Epigastric Pain: Denies Lower Extremities Edema: Bilateral Lower Extremities Degree: 1+ Upper Extremities Edema: None Degree: None Facial Edema: None Temperature Route: Oral Fall Risk Assessment History of Falling: (0) No Secondary Diagnosis: (0) No Ambulatory Aid: (0) Bedrest/Nurse Assist IV Therapy: (0) No Gait: (0) Normal/Bedrest/Immobile Mental Status: (0) Oriented to Own Ability Fall Score: 0 Fall Risk Score Definition: No Risk: No action required Comment: PT ARRIVED TO TRIAGE VIA STRETCHER FROM AMBULANCE C/O OF 'S SINCE 08/17/17 AT 1300 Q4-5 MINS, DECREASE FM _ C/O OF 04/07 PAIN Pain Assessment Pain Scale: 7 Pain Presence: Intermittent Pain Type: Cramping Pain Location: Abdomen Pain Goal: 3 Pain Relief Measures: Comfort Measures Datetime: 08/18/2017 01:26 Monitor Mode: Palpation Datetime: 08/18/2017 01:18 Time of Arrival: 08/18/2017 01:18 EGA: 36.0 Arrived By: Ambulance Arrived From: Home Chief Complaint: UC'S SINCE 08/17/17 AT 1300 Movement: Decreased Contractions: Irregular Time Contractions Began: 08/18/2017 13:00 Contractions: 4-5 MINS AT HOME Rupture of Membranes: Denies Vaginal Bleeding: None Vaginal Discharge: Denies Recent Sexual Intercouse: Denies Abdominal Trauma: Not Applicable Patient Complaints: Contractions Time Provider Notified: 08/18/2017 01:54 Provider Notified: RENUBIAE Initial Plan: EFM, VITALS Datetime: 08/06/2017 14:55 Fall Score: 0 Fall Risk Score Definition: No Risk: No action required Datetime: 08/06/2017 14:54 EGA: 34.2 Datetime: 08/05/2017 11:04 EGA: 34.2 Datetime: 08/05/2017 09:58 Fall Score: 0 Fall Risk Score Definition: No Risk: No action required Datetime: 08/05/2017 09:45 EGA: 34.1 Datetime: 08/04/2017 10:00 Fall Score: 0 Fall Risk Score Definition: No Risk: No action required Datetime: 08/04/2017 09:30 EGA: 34.0 Datetime: 07/28/2017 02:43 Fall Score: 0 Fall Risk Score Definition: No Risk: No action required Datetime: 07/28/2017 02:00 EGA: 33.0 Datetime: 06/02/2017 07:14 Fall Score: 20 Fall Risk Score Definition: No Risk: No action required Datetime: 06/01/2017 19:26 Fall Score: 0 Fall Risk Score Definition: No Risk: No action required Datetime: 06/01/2017 07:55 Fall Score: 20 Fall Risk Score Definition: No Risk: No action required Datetime: 05/31/2017 19:39 Fall Score: 20 Fall Risk Score Definition: No Risk: No action required Datetime: 05/31/2017 08:18 Fall Score: 20 Fall Risk Score Definition: No Risk: No action required Datetime: 05/29/2017 21:46 Fall Score: 0 Fall Risk Score Definition: No Risk: No action required Datetime: 05/29/2017 20:00 Fall Score: 0 Fall Risk Score Definition: No Risk: No action required Datetime: 05/29/2017 16:05 EGA: 24.3 Datetime: 05/27/2017 19:18 Fall Score: 0 Fall Risk Score Definition: No Risk: No action required Datetime: 05/27/2017 18:20 Fall Score: 0 Fall Risk Score Definition: No Risk: No action required Datetime: 05/27/2017 18:19 EGA: 24.1 Datetime: 05/20/2017 22:49 Fall Score: 0 Fall Risk Score Definition: No Risk: No action required Datetime: 05/20/2017 22:48 EGA: 23.1
--- NOTE | 2017-08-18 12:16 | NSTRPT ---
NST Information Datetime Report Generated by CPN: 08/18/2017 12:15 Datetime: 08/14/2017 11:15 NST Information EGA: 35.3 Test Number: 4 Time on Monitor: 08/14/2017 11:32 Time off Monitor: 08/14/2017 12:15 NST Duration (Min): 43 Reason for NST: Cholestasis Test and Monitor Explained: Monitor Explained; Test Explained; Verbalized Understanding Pulse: 100 Resp: 18 SBP: 109 DBP: 64 Test Evaluation NST Interventions: Reposition Patient Patient States Movement: Present Contraction Frequency: occasional, mild FHR Baseline : 135 Variability: Moderate 6-25bpm Accelerations: 15X15 Decelerations: None FHR Category: Category I NST Results: Reactive Comments: Pt to U/S, MALLIKA 12.4cm, cephalic Electronically Signed By E-Signature: with User ID: [id number] Datetime: 08/11/2017 11:03 NST Information EGA: 35.0 NST Duration (Min): 25 Datetime: 08/07/2017 10:28 NST Information EGA: 34.3 NST Duration (Min): 24 Datetime: 07/28/2017 10:55 NST Information EGA: 33.0 NST Duration (Min): 27
== END 2017-08-18 06:37 | disposition home or self-care (01) ==
LOC: L-D 01:17 → OBT 01:17
PROVIDERS: ATTEND Obstetrics & Gynecology
DX: O62.9 Abnormality of forces of labor, unspecified (principal); O36.8130 Decreased fetal movements, third trimester, not applicable or unspecified; Z3A.36 36 weeks gestation of pregnancy
CPT/HCPCS: 76817; 76818; 81001; 81003; J3105; Z7500; G0463

== ENCOUNTER 2017-08-23 10:55 | Outpatient (CLI) | payer MEDICAID ==
[~2017-08-23] VITALS: Ht 152.4 cm; Wt 94.6 kg
[2017-08-23 11:12] VITALS: Ht 152.4 cm; Wt 94.6 kg
[2017-08-23 11:13] VITALS: BP 110/62; PULSE 101; RESP 18
--- NOTE | 2017-08-23 12:25 | RADRPT ---
PROCEDURE: US biophysical profile. CLINICAL INDICATION: Decreased motion. TECHNIQUE: Multiple sonographic images of the uterus were obtained. The images were revi ewed on a PACS workstation. COMPARISON: No prior studies are available for comparison. FINDINGS: There is a single live intrauterine gestation. heart rate is 157 beats per minute. The position is cephalic. The placenta is right lateral grade II with no abruption or previa. The MALLIKA is 13.8 cm. (Normal = 5-20 cm.) Breathing Movement: 2 Gross Body Movement: 2 Tone: 2 Qualitative Amniotic Fluid Volume: 2 TOTAL: 8 IMPRESSION: 1. The biophysical score is 8/8. RPTAT: QQ .Gunnar Pond MD, MD Date Time Electronically viewed and signed by .Gunnar Pond MD, on 08/23/2017 12:25 .R/
--- NOTE | 2017-08-23 13:04 | PN ---
Triage Information Date/Time Reason for visit: Weeks of Gestation 36w 5d /Para Objective Vital Signs Date Time Temp Pulse Resp B/P Pulse Ox O2 Delivery O2 Flow Rate FiO2 08/23/17 11:13 98.2 101 18 110/62 94 Room Air Heart Rate Comments reactive Contractions: None Results/Medications Imaging Results BPP 8/8, MALLIKA 13.3cm Disposition: Discharge Assessment/Plan Discharge home with precautions. Scheduled for induction in 2 days. MERRITT NASH Aug 23, 2017 13:04
--- NOTE | 2017-08-23 13:08 | TRIAGE ---
OB Triage Datetime Report Generated by CPN: 08/23/2017 13:08 Datetime: 08/23/2017 12:59 Stage of : OB Triage Maternal Assessment Level of Consciousness: Fully Conscious Labor Evaluation Frequency: NONE Monitor Mode: External Resting Tone [employer]: Relaxed Heart Rate FHR Baseline Rate: 125 Monitor Mode: External US Variability: Moderate 6-25 bpm Accelerations: 15X15 Decelerations: None Pain Assessment Pain Scale: 0 Pain Goal: 3 Vaginal Exam Membrane Status: Intact Vaginal Bleeding: None Datetime: 08/23/2017 12:00 Stage of : OB Triage Maternal Assessment Level of Consciousness: Fully Conscious Labor Evaluation Frequency: NONE Monitor Mode: External Resting Tone [employer]: Relaxed Heart Rate FHR Baseline Rate: 125 Monitor Mode: External US Variability: Moderate 6-25 bpm Accelerations: 15X15 Decelerations: None Category: Category I Pain Assessment Pain Scale: 0 Pain Goal: 3 Vaginal Exam Membrane Status: Intact Vaginal Bleeding: None Datetime: 08/23/2017 11:08 Assessment Type: Triage Maternal Assessment Level of Consciousness: Fully Conscious DTR's/Clonus: DTRs 2+; No Clonus Headache: Denies Blurred Vision: No Respiratory Effort: Unlabored; Regular Rhythm; Equal Expansion Breath Sounds, Left: Clear and Equal Breath Sounds, Right: Clear and Equal Nausea/Vomiting: Denies RUQ Epigastric Pain: Denies Lower Extremities Edema: Bilateral Lower Extremities Degree: 1+ Upper Extremities Edema: None Degree: None Facial Edema: None Fall Risk Assessment History of Falling: (0) No Secondary Diagnosis: (0) No Ambulatory Aid: (0) Bedrest/Nurse Assist IV Therapy: (0) No Gait: (0) Normal/Bedrest/Immobile Mental Status: (0) Oriented to Own Ability Fall Score: 0 Fall Risk Score Definition: No Risk: No action required Datetime: 08/23/2017 11:07 Time of Arrival: 08/23/2017 10:44 EGA: 36.5 Arrived By: Ambulatory Arrived From: Home Chief Complaint: PT HERE FOR NST/BPP FOR CHOLESTASIS Movement: Present Contractions: Denies/Absent Rupture of Membranes: Denies Vaginal Bleeding: None Vaginal Discharge: Denies Recent Sexual Intercouse: Denies Abdominal Trauma: Not Applicable Patient Complaints: None Time Provider Notified: 08/23/2017 11:30 Provider Notified: DAYSI Initial Plan: NST/BPP Datetime: 08/23/2017 11:05 Monitor Mode: External Monitor Mode: External US Datetime: 08/18/2017 01:29 Fall Score: 0 Fall Risk Score Definition: No Risk: No action required Datetime: 08/18/2017 01:18 EGA: 36.0 Datetime: 08/06/2017 14:55 Fall Score: 0 Fall Risk Score Definition: No Risk: No action required Datetime: 08/06/2017 14:54 EGA: 34.2 Datetime: 08/05/2017 11:04 EGA: 34.2 Datetime: 08/05/2017 09:58 Fall Score: 0 Fall Risk Score Definition: No Risk: No action required Datetime: 08/05/2017 09:45 EGA: 34.1 Datetime: 08/04/2017 10:00 Fall Score: 0 Fall Risk Score Definition: No Risk: No action required Datetime: 08/04/2017 09:30 EGA: 34.0 Datetime: 07/28/2017 02:43 Fall Score: 0 Fall Risk Score Definition: No Risk: No action required Datetime: 07/28/2017 02:00 EGA: 33.0 Datetime: 06/02/2017 07:14 Fall Score: 20 Fall Risk Score Definition: No Risk: No action required Datetime: 06/01/2017 19:26 Fall Score: 0 Fall Risk Score Definition: No Risk: No action required Datetime: 06/01/2017 07:55 Fall Score: 20 Fall Risk Score Definition: No Risk: No action required Datetime: 05/31/2017 19:39 Fall Score: 20 Fall Risk Score Definition: No Risk: No action required Datetime: 05/31/2017 08:18 Fall Score: 20 Fall Risk Score Definition: No Risk: No action required Datetime: 05/29/2017 21:46 Fall Score: 0 Fall Risk Score Definition: No Risk: No action required Datetime: 05/29/2017 20:00 Fall Score: 0 Fall Risk Score Definition: No Risk: No action required Datetime: 05/29/2017 16:05 EGA: 24.3 Datetime: 05/27/2017 19:18 Fall Score: 0 Fall Risk Score Definition: No Risk: No action required Datetime: 05/27/2017 18:20 Fall Score: 0 Fall Risk Score Definition: No Risk: No action required Datetime: 05/27/2017 18:19 EGA: 24.1 Datetime: 05/20/2017 22:49 Fall Score: 0 Fall Risk Score Definition: No Risk: No action required Datetime: 05/20/2017 22:48 EGA: 23.1
== END 2017-08-23 13:13 | disposition home or self-care (01) ==
LOC: OBT 10:55 → L-D 10:56 → OBT 13:13
PROVIDERS: ATTEND Obstetrics & Gynecology
DX: Z36.9 Encounter for antenatal screening, unspecified (principal)
CPT/HCPCS: 76818; Z7500; G0463

== ENCOUNTER 2017-08-25 15:58 | Inpatient (IN) | payer MEDICAID ==
[~2017-08-25] VITALS: Ht 152.4 cm; Wt 94.6 kg
[2017-08-25 16:06] VITALS: BP 111/59; PULSE 80; BMI 31.4
--- NOTE | 2017-08-25 16:42 | HP ---
Date/Time of Note Date/Time of Note DATE: 08/25/17 TIME: 16:39 OB - History Hx of Present Free Text/Dictation Admitted for induction of labor at 37 weeks because of cholestasis of Last Menstrual Period: Dec 10, 2007 Estimated Due Date: Sep 15, 2017 : 2 Para: 0 Spontaneous : 1 Care: Good Care Ultrasounds: Normal mid trimester US (Cholestasis) Obstetrical Complications: Other Medical Complications: None Past Family/Social History * Past Medical, Surgical, Family and Obstetric Histories reviewed from chart. Blood Type: O+ Rubella: immune RPR/VDRL: Negative GBS Status: Negative HBsAG: Negative OB Admission Exam Vital Signs Vital Signs Vital Signs Date Time Temp Pulse Resp B/P Pulse Ox O2 Delivery O2 Flow Rate FiO2 08/25/17 16:06 98.3 80 111/59 Physical Exam HEENT: WNL Heart: Rhythm Normal Lungs: Clear, Equal Abdomen: WNL Extremities: Normal Reflexes: Normal Cervical Dilatation: None Effacement: 0% Station: -3 Membranes: Intact Heart Rate: 140's Accelerations: Accelerations Present Decelerations: No Decelerations Varibility: Marked Contractions on Admission: None OB Assessment/Plan Other Assessment: 37 weeks gestation Cholestasis of Other plan: Induce labor Via Cervidil insertion JOSÉ SLOAN MD Aug 25, 2017 16:42
[2017-08-25] MEDS: LACTATED RINGER'S 1,000 ML IV SCH ×2 (16:58→23:54)
[2017-08-25] MEDS ORDERED: METHYLERGONOVINE 0.2 MG INJ IM PRN (17:00)
[2017-08-25] MEDS ORDERED: HYDROCODONE/APAP (5/325) TAB PO PRN (17:00)
[2017-08-25] MEDS ORDERED: CARBOPROST 250 MCG INJ IM PRN (17:00)
[2017-08-25] MEDS ORDERED: LIDOCAINE 1% (MPF) 30 ML INJ INJ PRN (17:00)
[2017-08-25] MEDS ORDERED: DINOPROSTONE 10 MG VAG SUPP VAG ONE (17:00)
[2017-08-25] MEDS ORDERED: OXYTOCIN 30 UNITS/LR 500 ML IV SCH ×2 (17:00)
[2017-08-25] MEDS ORDERED: OXYTOCIN 30 UNITS/LR 500 ML IV PRN (17:00)
[2017-08-25] MEDS ORDERED: MISOPROSTOL 200 MCG TAB PR PRN (17:00)
[2017-08-25] MEDS ORDERED: IBUPROFEN 600 MG TAB PO PRN (17:00)
[2017-08-25 17:14] LABS: BASOPHILS % 0.2 % (0.0-2.0); EOSINOPHILS # 0.2 10^3/ul (0.0-0.5); EOSINOPHILS % 1.7 % (0.0-7.0); HEMATOCRIT 33.2 % (37.0-47.0); LYMPHOCYTES # 1.7 10^3/ul (0.8-2.9); LYMPHOCYTES % 16.2 % (18.0-55.0); MEAN CORPUSCULAR HEMOGLOBIN 28.9 pg (29.0-33.0); MEAN CORPUSCULAR HGB CONC 33.1 g/dl (32.0-37.0); MEAN CORPUSCULAR VOLUME 87.1 fl (72.0-104.0); MEAN PLATELET VOLUME 10.2 fl (7.4-10.4); MONOCYTES % 9.5 % (0.0-13.0); NEUTROPHIL # 7.6 10^3/ul (1.6-7.5); NEUTROPHILS % 70.9 % (30.0-74.0); PLATELET COUNT 279 10^3/UL (140-415); RED BLOOD COUNT 3.81 10^6/ul (4.20-5.40); RED CELL DISTRIBUTION WIDTH 13.5 % (11.5-14.5); WHITE BLOOD COUNT 10.7 10^3/ul (4.8-10.8)
[2017-08-25 18:01] LABS: INR 0.93; PROTIME 12.5 Sec (12.2-14.2)
[2017-08-25 18:02] LABS: PARTIAL THROMBOPLASTIN TIME 27.8 Sec (25.0-35.0)
[2017-08-25] MEDS ORDERED: LACTATED RINGER'S 1,000 ML IV PRN (20:00)
[2017-08-26] MEDS: BUTORPHANOL 2 MG INJ IV PRN ×2 (00:49→05:11)
[2017-08-26 02:16] VITALS: Ht 152.4 cm; Wt 94.6 kg
[2017-08-26] MEDS: LACTATED RINGER'S 1,000 ML IV SCH ×3 (07:51→23:34)
[2017-08-26] MEDS ORDERED: FENTAnyl 2MCG/ML-ROPIV 0.2% 100 ML ONE (08:20)
[2017-08-26 09:07] LABS: BARBITURATES Negative (NEGATIVE); BENZODIAZEPINES Negative (NEGATIVE); CANNABINOIDS Negative (NEGATIVE); COCAINE Negative (NEGATIVE); OPIATES Negative (NEGATIVE)
--- NOTE | 2017-08-26 09:32 | PN ---
Date/Time of Note Date/Time of Note DATE: 08/26/17 TIME: 09:31 OB Subjective Subjective Subjective No complaint of uterine contractions Currently has epidural OB Objective Objective Objective Patient is sleep Cervix was reported to be 50% effaced and 1 cm OB Assessment/Plan Other Assessment: 37 weeks gestation Cholestasis Other plan: We will continue to observe on Cervidil Start Pitocin augmentation when cervical dilatation appears to be 2 cm JOSÉ SLOAN MD Aug 26, 2017 09:32
[2017-08-26] MEDS ORDERED: OXYTOCIN 30 UNITS/LR 500 ML IV SCH (10:30)
[2017-08-26] MEDS: URSODIOL 300 MG CAP PO SCH ×2 (12:36→20:55)
[2017-08-26] MEDS ORDERED: ONDANSETRON 4 MG INJ IV PRN (14:00)
[2017-08-26] MEDS ORDERED: ZOLPIDEM 5 MG TAB PO PRN (14:00)
[2017-08-26] MEDS ORDERED: NALOXONE (0.4 MG/ML) INJ IV PRN (14:00)
[2017-08-26] MEDS ORDERED: KETOROLAC 30 MG INJ IV PRN (14:00)
[2017-08-26] MEDS ORDERED: HYDROmorphONE 0.5 MG/0.5 ML SYG IV PRN ×2 (14:00)
--- NOTE | 2017-08-26 14:20 | NSTRPT ---
NST Information Datetime Report Generated by CPN: 08/26/2017 14:20 Datetime: 08/20/2017 11:00 NST Information EGA: 36.2 Test Number: 5 Time on Monitor: 08/20/2017 11:27 Time off Monitor: 08/20/2017 11:58 NST Duration (Min): 31 Reason for NST: Cholestasis Test and Monitor Explained: Monitor Explained; Test Explained; Verbalized Understanding Pulse: 92 Resp: 17 SBP: 114 DBP: 64 Test Evaluation NST Interventions: PO Hydration; Reposition Patient Patient States Movement: Present Contraction Frequency: none FHR Baseline : 140 Variability: Moderate 6-25bpm Accelerations: 15X15 Decelerations: None FHR Category: Category I NST Results: Reactive Comments: Pt to U/S, MALLIKA 13.0cm, cephalic. Pt instructed to go to triage 08/23 and then to NST Electronically Signed By E-Signature: with User ID: [id number] Datetime: 08/14/2017 11:15 NST Information EGA: 35.3 NST Duration (Min): 43 Datetime: 08/11/2017 11:03 NST Information EGA: 35.0 NST Duration (Min): 25 Datetime: 08/07/2017 10:28 NST Information EGA: 34.3 NST Duration (Min): 24 Datetime: 07/28/2017 10:55 NST Information EGA: 33.0 NST Duration (Min): 27
[2017-08-26] MEDS: FENTAnyl 2MCG/ML-ROPIV 0.2% 100 ML BAG EPI SCH ×2 (18:24→23:35)
[2017-08-26] MEDS ORDERED: DINOPROSTONE 10 MG VAG SUPP VAG ONE (19:30)
[2017-08-27] MEDS: DIPHENHYDRAMINE 50 MG INJ IV PRN ×2 (00:46→08:06)
[2017-08-27] MEDS: FENTAnyl 2MCG/ML-ROPIV 0.2% 100 ML BAG EPI SCH ×4 (05:40→22:25)
[2017-08-27] MEDS: LACTATED RINGER'S 1,000 ML IV SCH ×5 (07:56→20:18)
[2017-08-27] MEDS: URSODIOL 300 MG CAP PO SCH ×3 (08:38→21:12)
[2017-08-27] MEDS ORDERED: DIPHENHYDRAMINE 2%/ZINC 28.4 GM CR TOP PRN ×2 (12:00→13:30)
--- NOTE | 2017-08-27 15:44 | RADRPT ---
PROCEDURE: US OB biophysical profile. CLINICAL INDICATION: decreased movements TECHNIQUE: Multiple sonographic images of the pelvis were obtained. The images were reviewed on a PACS workstation. COMPARISON: US PELVIS 08/23/2017 FINDINGS: There is a single viable intrauterine gestation. Cardiac activity is present with 161 beats per min shira. There is a vertex presentation. The placenta is posterior fundal. There is no evidence of placental abruption. There is a normal amount of amniotic fluid with an MALLIKA = 15.2 cm. Biophysical profile: movement 2/2 tone 2/2. breathing 2/2 MALLIKA 2/2 Total 05/06 RPTAT: AA . IMPRESSION: Normal biophysical profile. . .Emanuel Dudley MD, MD Date Time Electronically viewed and signed by .Emanuel Dudley MD, MD on 08/27/2017 15:44 .S/
--- NOTE | 2017-08-27 18:02 | PN ---
Date/Time of Note Date/Time of Note DATE: 08/27/17 TIME: 18:00 OB Subjective Subjective Subjective Complain of minimal contractions OB Objective Objective Objective Vital signs stable General physical exam is normal Cervix is 2 cm 20-30% effaced OB Assessment/Plan Reason for admission: induction of labor Other Assessment: Cholestasis at 37 weeks Other plan: We will probably do ROM JOSÉ SLOAN MD Aug 27, 2017 18:02
[2017-08-27] MEDS ORDERED: DIPHENHYDRAMINE 50 MG INJ IV PRN (19:00)
[2017-08-28] MEDS: LACTATED RINGER'S 1,000 ML IV SCH (02:19)
[2017-08-28] MEDS: FENTAnyl 2MCG/ML-ROPIV 0.2% 100 ML BAG EPI SCH (02:21)
--- NOTE | 2017-08-28 07:18 | LDN ---
Date/Time of Note Date/Time of Note DATE: 08/28/17 TIME: 07:16 Delivery Summary August 28, 2017 I was called To deliver the patient due to nonavailability of primary attending OB and patient significant urge to push Patient had been managed throughout her labor course by primary OB attending Dr. Mcnair Weeks of Gestation 37 weeks and 3 days. Cholsestasis of Placenta Delivered: Spontaneously Meconium: none Perineal laceration: 2 Laceration repair: second degree laceration repaired using 2-0 vicryl Anesthesia type: Epidural Estimated blood loss: 300 Sponge & Needle done & correct: Yes All needle counts correct: Yes Any foreign bodies felt in the: No Problems: Infant Delivery Information Sex Infant Sex: female Apgars 1 Minute: 7 5 Minute: 9 TIFFANI FORBES MD Aug 28, 2017 07:18
[2017-08-28] MEDS ORDERED: LANOLIN 7 GM TUBE TOP PRN (07:30)
[2017-08-28] MEDS ORDERED: ACETAMINOPHEN 325 MG TAB PO PRN (07:30)
[2017-08-28] MEDS ORDERED: CARBOPROST 250 MCG INJ IM PRN (07:30)
[2017-08-28] MEDS ORDERED: DIPHENHYDRAMINE 25 MG CAP PO PRN (07:30)
[2017-08-28] MEDS ORDERED: ONDANSETRON 4 MG INJ IV PRN (07:30)
[2017-08-28] MEDS ORDERED: MISOPROSTOL 200 MCG TAB PR PRN (07:30)
[2017-08-28] MEDS ORDERED: ZOLPIDEM 5 MG TAB PO PRN (07:30)
[2017-08-28] MEDS ORDERED: OXYTOCIN 30 UNITS/LR 500 ML IV PRN (07:30)
[2017-08-28] MEDS ORDERED: METHYLERGONOVINE 0.2 MG INJ IM PRN (07:30)
[2017-08-28] MEDS: HYDROCODONE/APAP (5/325) TAB PO PRN ×2 (08:00→16:27)
[2017-08-28 08:40] LABS: HEMATOCRIT 32.8 % (37.0-47.0); HEMOGLOBIN 11.1 g/dl (12.0-16.0)
[2017-08-28] MEDS: URSODIOL 300 MG CAP PO SCH ×3 (09:00→20:48)
[2017-08-28 09:15] VITALS: BP 104/69; PULSE 98; RESP 18
[2017-08-28] MEDS ORDERED: IBUPROFEN 600 MG TAB ONE (09:42)
[2017-08-28] MEDS: SENNA/DOCUSATE NA (8.6MG/50MG) TAB PO SCH ×2 (09:44→20:48)
[2017-08-28] MEDS: IBUPROFEN 600 MG TAB PO SCH ×3 (09:45→23:43)
[2017-08-28] MEDS: LACTATED RINGER'S 1,000 ML IV* SCH ×2 (11:04→15:18)
[2017-08-28] MEDS: CEPHALEXIN 500 MG CAP PO SCH ×3 (15:00→23:43)
[2017-08-28 16:00] VITALS: BP 123/70; PULSE 92; RESP 18
[2017-08-28] MEDS ORDERED: BENZOCAINE 20% 56 ML SPRAY TOP PRN (18:30)
[2017-08-28 19:45] VITALS: BP 114/62; PULSE 94; RESP 19
[2017-08-29] MEDS: HYDROCODONE/APAP (5/325) TAB PO PRN (02:02)
[2017-08-29 04:20] VITALS: BP 117/71; PULSE 91; RESP 20
[2017-08-29] MEDS: IBUPROFEN 600 MG TAB PO SCH ×4 (05:46→23:42)
[2017-08-29] MEDS: CEPHALEXIN 500 MG CAP PO SCH ×4 (05:46→23:42)
[2017-08-29 08:40] VITALS: BP 117/73; PULSE 94; RESP 17
[2017-08-29] MEDS: URSODIOL 300 MG CAP PO SCH ×2 (09:12→12:42)
[2017-08-29] MEDS: SENNA/DOCUSATE NA (8.6MG/50MG) TAB PO SCH ×2 (09:12→22:15)
[2017-08-29 16:00] VITALS: BP 134/73; RESP 18
--- NOTE | 2017-08-29 18:35 | DS ---
Date/Time of Note Date/Time of Note home next day DATE: 08/29/17 TIME: 18:31 Obstetrical Discharge Record Final Diagnosis Final Diagnosis: Term delivered Other Final Diagnosis S/P vaginal delivery Vaginal Delivery Obstetrical Delivery: Spontaneous, Laceration, Repaired Complications Augmentation: Yes Induction: Yes Condition on Discharge Physical Assessment Last Vitals: see nurses notes Voiding: Yes Bowel Movement: Yes Breast: Soft, non-tender, Filling Fundus: Firm Abdomen and Incision: soft BS{ Fundus firm at U Episiotomy: Perineum : HEALING WELL Calf Tenderness: No Patient Condition: Good JOSÉ SLOAN MD Aug 29, 2017 18:34
--- NOTE | 2017-08-29 18:36 | PD.PPDC ---
[employer] OFFICER Discharge Instruction Provider Information Physician Information 21 y/o female had vaginal delivery Diagnosis Final Diagnosis: S/P vaginal delivery Condition Patient Condition: Good Diet Diet: Resume Regular Diet Activity/Restrictions Activity: Normal Activity May Shower Restrictions: Nothing in the Vagina Return to Work or School: Oct 13, 2017 Follow-up Follow-up with Physician: 4, Week/Weeks (in clinic) Return to clinic for OB Instructions: Breast Tenderness Depression Comment: pelvic rest X 6 weeks JOSÉ SLOAN MD Aug 29, 2017 18:36
[2017-08-29] MEDS ORDERED: IBUP-1542 PO (18:37)
[2017-08-29] MEDS ORDERED: CEPHALEXIN 500 MG CAP PO SCH (19:00)
[2017-08-29 19:40] VITALS: BP 113/70; PULSE 87; RESP 18
[2017-08-30] MEDS: HYDROCODONE/APAP (5/325) TAB PO PRN (00:49)
[2017-08-30 04:30] VITALS: BP 124/68; PULSE 86; RESP 18
[2017-08-30] MEDS: CEPHALEXIN 500 MG CAP PO SCH ×3 (05:28→18:41)
[2017-08-30] MEDS: IBUPROFEN 600 MG TAB PO SCH ×3 (05:28→18:42)
[2017-08-30 08:45] VITALS: BP 112/65; PULSE 83; RESP 18
[2017-08-30] MEDS ORDERED: MEASLES,MUMPS,RUBELLA VACCINE INJ SC* ONE (09:00)
[2017-08-30] MEDS ORDERED: VARICELLA VACCINE LIVE/PF 1,350 UNIT/0.5 ML ML SC* ONE (09:00)
[2017-08-30] MEDS ORDERED: DIPHTH/TET/ACEL PERTUSS (ADULT) 0.5 ML VIAL IM* ONE (09:00)
[2017-08-30 09:10] LABS: BASOPHILS % 0.3 % (0.0-2.0); EOSINOPHILS # 0.2 10^3/ul (0.0-0.5); EOSINOPHILS % 2.3 % (0.0-7.0); HEMATOCRIT 27.5 % (37.0-47.0); HEMOGLOBIN 9.1 g/dl (12.0-16.0); LYMPHOCYTES % 25.2 % (18.0-55.0); MEAN CORPUSCULAR HEMOGLOBIN 28.8 pg (29.0-33.0); MEAN CORPUSCULAR HGB CONC 33.1 g/dl (32.0-37.0); MONOCYTE # 0.7 10^3/ul (0.3-0.9); MONOCYTES % 8.8 % (0.0-13.0); NEUTROPHILS % 62.3 % (30.0-74.0); PLATELET COUNT 255 10^3/UL (140-415); RED BLOOD COUNT 3.16 10^6/ul (4.20-5.40); RED CELL DISTRIBUTION WIDTH 13.5 % (11.5-14.5)
[2017-08-30 12:00] VITALS: BP 133/73; RESP 18
[2017-08-30] MEDS: SENNA/DOCUSATE NA (8.6MG/50MG) TAB PO SCH (12:30)
--- NOTE | 2017-08-30 14:49 | QN ---
Documentation Comment Patient was complaining of chest pain earlier Currently without symptoms Had EKG abnormalities Hospitalist consult was obtained Troponin appear normal We will DC patient home pending hospitalist consultation JOSÉ SLOAN MD Aug 30, 2017 14:49
--- NOTE | 2017-08-30 15:26 | CONS ---
Date/Time of Note Date/Time of Note DATE: 08/30/17 TIME: 15:13 Assessment/Plan Assessment/Plan Chief Complaint/Hosp Course 21 yo F c/o chest pain this am Problems: Additional Assessment/Plan 1. Chest pain, doubt ACS etiology - Patient states pain is located under rib cage and radiates to flank area but has been experiencing similar symptoms over the past 4 years - Will check renal panel to assess kidney function - If renal panel abnormal, will order renal US to further assess - Trop negative x1 and CK-MB pending - EKG normal sinus with no acute st changes - Recommend Tums for indigestion and Simethicone for bloating since also c/o epigastric discomfort Thank you for allowing me to participate in the care of your patient. Any questions please feel free to call Consultation Date/Type/Reason Admit Date/Time Aug 25, 2017 at 15:58 Date of Consultation: Aug 30, 2017 Reason for Consultation Chest discomfort evaluation Hx of Present Illness 21 yo F who just delivered yesterday with PMH exercise induced asthma and ovarian cysts complained of chest discomfort in epigastric area as well as under breasts radiating to bilateral flanks that occurred after she had her blood drawn this am. Patient states she has been experiencing this pain since she was 17 years old but has never been evaluated in the past. Patient states she is unaware of what brings about the discomfort, usually lasts 10-20 minutes and resolves on its own. Pain is not daily and not associated with nausea, vomiting, shortness of breath, dizziness, palpitations, or GI issues. Patient had gallbladder removed 2 years ago but does state she feels like eating helps improve the discomfort. Denies currently having chest discomfort or any other concerning signs and symptoms. All 12 systems reviewed and pertinent positives as per HPI. All others reviewed and negative. Constitutional: No chills, No diaphoresis, No disoriented, No febrile, No requiring O2 Eyes: no complaints ENT: no complaints, No discharge, No dysphagia Respiratory: no complaints, No cough, No shortness of breath, No sputum, No wheezing Cardiovascular: chest pain, No edema, No lightheadedness, No palpitations Gastrointestinal: No constipation, No diarrhea, No nausea, No pain, No vomiting Genitourinary: flank pain, No discharge, No dysuria Musculoskeletal: back pain Skin: no complaints, No erythema, No pruritis, No rash Neurologic: no complaints Endocrine: no complaints Lymphatic: no complaints Psychological: nl mood/affect Immunologic: no complaints Past Medical History Medical History: other (exercise induced asthma, ovarian cysts) Past Surgical History Past Surgical Hx: cholecystectomy Family History Significant Family History: no pertinent family hx (adopted) Social History Alcohol Use: none Smoking Status: Never smoker Drug Use: none Exam/Review of Systems Vital Signs Vitals Vital Signs Date Time Temp Pulse Resp B/P Pulse Ox O2 Delivery O2 Flow Rate FiO2 08/30/17 08:45 98.0 83 18 112/65 Room Air Exam Constitutional: alert, oriented, well developed Psych: nl mood/affect Head: atraumatic, normocephalic Eyes: EOMI, PERRL, nl sclera ENMT: mucosa pink and moist Neck: non-tender, supple Respiratory: clear to auscultation, No crackles/rales, No wheezing Cardiovascular: regular rate and rhythm, No irregular rhythm, No murmurs/extra sounds Gastrointestinal: distended, non-tender, soft, surgical scars, No mass, No rebound or guarding Genitourinary - Female: CVA tenderness Musculoskeletal: nl extremities to inspection, nl gait and stance, No joint tenderness Extremities: normal pulses, No cyanosis, No edema 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, nl mental status, nl speech, nl strength Skin: nl turgor Lymph: nl lymph nodes Results Result Diagram: 08/30/17 0854 Results 24 hrs Laboratory Tests Test 08/30/17 08:54 White Blood Count 8.0 # Red Blood Count 3.16 L Hemoglobin 9.1 L Hematocrit 27.5 L Mean Corpuscular Volume 87.0 Mean Corpuscular Hemoglobin 28.8 L Mean Corpuscular Hemoglobin Concent 33.1 Red Cell Distribution Width 13.5 Platelet Count 255 Mean Platelet Volume 10.0 Neutrophils % 62.3 Lymphocytes % 25.2 Monocytes % 8.8 Eosinophils % 2.3 Basophils % 0.3 Nucleated Red Blood Cells % 0.0 Neutrophils # 5.0 Lymphocytes # 2.0 Monocytes # 0.7 Eosinophils # 0.2 Basophils # 0.0 Nucleated Red Blood Cells # 0.0 Troponin I < 0.012 Medications Medications Home medications reviewed Current Medications Ibuprofen (Motrin) 600 mg Q6 PO Last administered on 08/30/17t 12:30; Admin Dose 600 MG; Start 08/28/17 at 12:00 Acetaminophen/ Hydrocodone Bitart ([place] (5/325)) 1 tab Q4H PRN PO PAIN LEVEL 1 -5 Last administered on 08/30/17 00:49; Admin Dose 1 TAB; Start 08/28/17 at 07 :30 Ondansetron HCl (Zofran Inj) 4 mg Q6H PRN IV NAUSEA AND/OR VOMITING; Start at 07:30 Diphenhydramine HCl (Benadryl) 25 mg Q6H PRN PO PRURITUS; Start 08/28/17 at 07 :30 Zolpidem Tartrate (Ambien) 5 mg QHS PRN PO INSOMNIA; Start 08/28/17 at 07:30 Senna/Docusate Sodium (Senokot-S) 1 tab BID PO Last administered on 08/30/17 12:30; Admin Dose 1 TAB; Start 08/28/17 at 09:00 Acetaminophen 650 mg 650 mg Q4H PRN PO ELEVATED TEMPERATURE; Start 08/28/17 at 07:30 Oxytocin/Lactated Ringer's 500 ml @ 0 mls/hr ONCE PRN IV For Hemorrhage Management Last administered on 08/28/17 07:43; Admin Dose 125 MLS/HR; Start 08/28/17 at 07:30 Methylergonovine Maleate (Methergine) 0.2 mg ONCE PRN IM VAGINAL BLEEDING; Start 08/28/17 at 07:30 Carboprost Tromethamine (Hemabate) 250 mcg ONCE PRN IM VAGINAL BLEEDING; Start 08/28/17 at 07:30 Misoprostol (Cytotec) 1,000 mcg ONCE PRN MD VAGINAL BLEEDING; Start 08/28/17 at 07:30 Cephalexin (Keflex) 500 mg Q6 PO Last administered on 08/30/17 12:30; Admin Dose 500 MG; Start 08/28/17 at 15:00 Benzocaine (Dermoplast [place]) 1 spray PRN PRN TOP HEMORRHOID/EPISIOTMY PAIN Last administered on 08/28/17 19:37; Admin Dose 1 SPRAY; Start 08/28/17 at 18 :30 MELONY LAGUNAS MD Aug 30, 2017 15:26
[2017-08-30 16:00] VITALS: BP 113/74; RESP 18
[2017-08-30] MEDS ORDERED: CALCIUM CARBONATE 500 MG CHEW TAB PO PRN (16:00)
[2017-08-30 16:20] LABS: CREATINE KINASE 108 IU/L (23-200)
[2017-08-30 16:30] LABS: CK-MB 1.35 ng/ml (0.0-2.4)
[2017-08-30 16:31] LABS: TROPONIN-I < 0.012 ng/ml (0.00-0.12)
[2017-08-30 17:05] LABS: ALBUMIN 2.9 g/dl (3.3-4.9); CREATININE 0.7 mg/dl (0.44-1.00); PHOSPHORUS 5.7 mg/dl (2.5-4.9); POTASSIUM 4.5 mmol/L (3.5-5.1)
[2017-08-30] MEDS ORDERED: CALC200T26 PO (17:22)
[2017-08-30] MEDS ORDERED: MYL80 PO (17:22)
--- NOTE | 2017-09-01 13:27 | RADRPT ---
Vent Rate: 80 bpm RR Interval: 0 msec [place] Interval: 178 msec QRS Duration: 78 msec QT Interval: 372 msec QTC Interval: 429 msec P-R-T [place]: 57 - 56 - 44 degrees Normal sinus rhythm Cannot rule out Anterior infarct , age undetermined Abnormal ECG Electronically Signed By: Anam Tong [id number]
== END 2017-08-30 19:26 | disposition home or self-care (01) | DRG 775 ==
LOC: L-D 15:58 → PP1 08-28 09:20
PROVIDERS: ADMIT Obstetrics & Gynecology; ATTEND Obstetrics & Gynecology
PROC: 10E0XZZ Delivery of Products of Conception, External Approach (ICD-10-PCS; principal; 2017-08-28)
PROC: 0KQM0ZZ Repair Perineum Muscle, Open Approach (ICD-10-PCS; 2017-08-28)
PROC: 3E033VJ Introduction of Other Hormone into Peripheral Vein, Percutaneous Approach (ICD-10-PCS; 2017-08-28)
DX: O99.62 Diseases of the digestive system complicating childbirth (principal); Z37.0 Single live birth; O70.1 Second degree perineal laceration during delivery; Z3A.37 37 weeks gestation of pregnancy
CPT/HCPCS: 62319; 76818; 80069; 80307; 82550; 82553; 84484; 85014; 85018; 85025; 85610; 85730; 86592; 86900; 86901; 87340; 90715; 90716; 93005; 99464; J0595; J1200; J2590; J3010; J7120